=== PATIENT | male | born 1955 | race African-American/Black ===

== ENCOUNTER 2019-05-22 17:15 | Inpatient (IN) | payer BC, OTHER ==
[~2019-05-22] VITALS: Ht 175.3 cm; Wt 82.7 kg
[~2019-05-22 17:15] MED LIST: AMLO10TA8 PO; LOSA1TAB25 PO; METO25TA4 PO; OMEP20TA8 PO; ZOLP5TAB PO
--- NOTE | 2019-05-22 17:55 | PHYS DOC ---
Past Medical History Past Medical History: High Cholesterol, Hypertension Additional Past Medical Histor: acid reflex Past Surgical History: Other Additional Past Surgical Histo: hernia repair, rt arm sx Alcohol Use: Heavy Drug Use: None Adult General Chief Complaint Chief Complaint: DIZZY/LIGHT HEADED HPI HPI 64-year-old male presents to ER via EMS for complaints of dizziness, EtOH, and fall. Patient's reports patient has drank a fifth of vodka today and had episode where he became lightheaded and dizzy causing him to fall backwards striking his head on concrete. She reports he did have positive LOC �2 after the fall. Patient on arrival is A&Ox3 voicing no complaints. Patient is denying any head, neck, or back pain. Patient states he has had no chest pain or shortness of air. Pt is uncertain of his last tetanus. Pt's reports pt drinks daily. Review of Systems Review of Systems ` Constitutional: Denies fever or chills. reports +LOC following fall Eyes: Denies change in visual acuity, redness, or eye pain [] HENT: Denies nasal congestion or sore throat [] Respiratory: Denies cough or shortness of breath [] Cardiovascular: Denies CP GI: Denies abdominal pain, nausea, vomiting, bloody stools or diarrhea [] : Denies urinary sxs Musculoskeletal: Denies back/neck pain or joint pain [] Integument: Denies rash or skin lesions [] Neurologic: Denies focal weakness or sensory changes. Reports felt dizzy and fell backwards- reports posterior head pain Endocrine: Denies polyuria or polydipsia [] Psych: reports pt drinks daily- pt denies any SI All other systems were reviewed and found to be within normal limits, except as documented in this note. Current Medications Current Medications Current Medications Medications (Trade) Dose Ordered Sig/Ashish Start Time Stop Time Status Last Admin Dose Admin Ceftriaxone Sodium (Rocephin) 1 gm 1X ONCE 05/22/19 20:15 05/22/19 20:16 DC 05/22/19 20:15 1 GM Diphtheria/ Tetanus/Acell Pertussis (Boostrix) 0.5 ml ONCE ONCE 05/22/19 20:15 05/22/19 20:16 DC 05/22/19 20:53 0.5 ML Sodium Chloride 1,000 ml @ 1,000 mls/hr 1X ONCE 05/22/19 18:30 05/22/19 19:29 DC 05/22/19 18:45 1,000 MLS/HR Allergies Allergies Allergies Coded Allergies Type Severity Reaction Last Updated Verified No Known Allergies Allergy Unknown 04/03/16 Yes Physical Exam Physical Exam Constitutional: Well developed, well nourished, no acute distress, non-toxic appearance. Clear speech HENT: Normocephalic, swelling rt posterior scalp with small abrasion/sm. amt of bleeding, bilateral ears normal, oropharynx moist, no oral injury, nose normal. [] Eyes: 3mm PERRLA, EOMI, conjunctiva normal, no discharge. [] Neck: Normal range of motion, no tenderness mid line cspine or palp. deformity, supple, no stridor. [] Cardiovascular: Heart rate regular rhythm, no murmur [] Lungs & Thorax: Bilateral breath sounds clear to auscultation- resp. equal/nonlabored. No chest wall tenderness Abdomen: Bowel sounds normal, soft, no tenderness, no masses, no pulsatile masses. [] Skin: Warm, dry, no erythema, no rash. [] Back: No tenderness mid line spine or palp. deformity- no visible injury, no CVA tenderness. [] Extremities: Pelvis stable/nontender. No tenderness, no cyanosis, no clubbing, ROM intact, no edema. [] Neurologic: Alert and oriented X 3, normal motor function, normal sensory function, no focal deficits noted. [] Psychologic: Affect normal, judgement normal, mood normal. [] Current Patient Data Vital Signs Vital Signs Date Time Temp Pulse Resp B/P (MAP) Pulse Ox O2 Delivery O2 Flow Rate FiO2 05/22/19 20:00 92 94 05/22/19 17:15 97.6 18 98/58 (71) Room Air 97.6 Lab Values Laboratory Tests Test 05/22/19 17:23 05/22/19 19:35 White Blood Count 8.3 x10^3/uL (4.0-11.0) Red Blood Count 4.76 x10^6/uL (4.30-5.70) Hemoglobin 12.0 g/dL (13.0-17.5) L Hematocrit 36.6 % (39.0-53.0) L Mean Corpuscular Volume 77 fL (79-100) L Mean Corpuscular Hemoglobin 25 pg (25-35) Mean Corpuscular Hemoglobin Concent 33 g/dL (31-37) Red Cell Distribution Width 21.1 % (11.5-14.5) H Platelet Count 258 x10^3/uL (140-400) Neutrophils (%) (Auto) 58 % (31-73) Lymphocytes (%) (Auto) 28 % (24-48) Monocytes (%) (Auto) 9 % (0-9) Eosinophils (%) (Auto) 4 % (0-3) H Basophils (%) (Auto) 0 % (0-3) Neutrophils # (Auto) 4.8 x10^3/uL (1.8-7.7) Lymphocytes # (Auto) 2.3 x10^3/uL (1.0-4.8) Monocytes # (Auto) 0.8 x10^3/uL (0.0-1.1) Eosinophils # (Auto) 0.4 x10^3/uL (0.0-0.7) Basophils # (Auto) 0.0 x10^3/uL (0.0-0.2) Platelet Estimate Adequate (ADEQUATE) Anisocytosis Mod Sodium Level 139 mmol/L (136-145) Potassium Level 4.0 mmol/L (3.5-5.1) Chloride Level 101 mmol/L (98-107) Carbon Dioxide Level 16 mmol/L (21-32) L Anion Gap 22 (6-14) H Blood Urea Nitrogen 20 mg/dL (8-26) Creatinine 2.5 mg/dL (0.7-1.3) H Estimated GFR (Cockcroft-Gault) 31.8 BUN/Creatinine Ratio 8 (6-20) Glucose Level 104 mg/dL (70-99) H Calcium Level 8.7 mg/dL (8.5-10.1) Magnesium Level 1.9 mg/dL (1.8-2.4) Total Bilirubin 0.3 mg/dL (0.2-1.0) Aspartate Amino Transferase (AST) 15 U/L (15-37) Alanine Aminotransferase (ALT) 24 U/L (16-63) Alkaline Phosphatase 64 U/L (46-116) Troponin I Quantitative < 0.017 ng/mL (0.000-0.055) Total Protein 7.1 g/dL (6.4-8.2) Albumin 3.5 g/dL (3.4-5.0) Albumin/Globulin Ratio 1.0 (1.0-1.7) Ethyl Alcohol Level 238 mg/dL (0-10) H Urine Collection Type Unknown Urine Color Yellow Urine Clarity Clear Urine pH 5.5 Urine Specific [place] 1.010 Urine Protein Negative mg/dL (NEG-TRACE) Urine Glucose (UA) Negative mg/dL (NEG) Urine Ketones (Stick) Negative mg/dL (NEG) Urine Blood Negative (NEG) Urine Nitrite Negative (NEG) Urine Bilirubin Negative (NEG) Urine Urobilinogen Dipstick 1.0 mg/dL (0.2 mg/dL) Urine Leukocyte Esterase Small (NEG) Urine RBC 0 /HPF (0-2) Urine WBC 11-20 /HPF (0-4) Urine Squamous Epithelial Cells Few /LPF Urine Bacteria Few /HPF (0-FEW) Urine Hyaline Casts Many /HPF Urine Mucus Marked /LPF Urine Opiates Screen Neg (NEG) Urine Methadone Screen Neg (NEG) Urine Barbiturates Neg (NEG) Urine Phencyclidine Screen Neg (NEG) Urine Amphetamine/Methamphetamine Neg (NEG) Urine Benzodiazepines Screen Neg (NEG) Urine Cocaine Screen Neg (NEG) Urine Cannabinoids Screen Neg (NEG) Urine Ethyl Alcohol Pos (NEG) Laboratory Tests 05/22/19 17:23 Laboratory Tests 05/22/19 17:23 Microbiology 05/22/19 Urine Culture - Final, Complete 05/22/19 Urine Culture Result 1 (JIMI) - Final, Complete EKG EKG EKG obtained 05/22/19 at [address] Betancourt Sinus tachycardia Rate 110 Ltward axis No STEMI Radiology/Procedures Radiology/Procedures []PROCEDURE: CT HEAD AND CERVICAL SPINE WO Exam performed: CT scan of the head and cervical spine without contrast. Date of Service: January 2019 Comparison: None available Clinical History: Fall, alcohol intoxication, dizziness, loss of consciousness Technique: Helical acquisitions are obtained from the foramen magnum to the vertex without intravenous administration of contrast. In addition helical acquisitions are obtained through the cervical spine. Sagittal and coronal reformatted images are obtained and reviewed. CT scan head findings: The ventricular system is midline without evidence of dilatation. Normal razo-white differentiation is maintained. There is no extra axial fluid collection, intraparenchymal hemorrhage or mass lesion. The visualized orbits, paranasal sinuses and the mastoid air cells are clear. The calvarium is intact. Impression: 1. Normal non-contrast CT of the brain. End Impression. CT cervical spine findings: Straightening of the cervical curvature is noted. The vertebral body heights are maintained. There is narrowing of C3/4, C4/5 and C5/6 disc spaces, the remainder intravertebral disc spaces are maintained. Mild anterior osteophytes are seen centered mainly around C3-C6. There is no amara or retrolisthesis. No prevertebral soft tissue swelling is identified. There are no fractures. No definite lymphadenopathy or masses are seen within the neck. The visualized thyroid and salivary glands appears preserved. Impression: 1. No acute abnormality seen in the CT scan cervical spine. 2. Spondylotic changes and multilevel disc degenerative changes are noted. RS Compliance Statement: One or more of the following individualized dose reduction techniques were utilized for this examination: 1. Automated exposure control 2. Adjustment of the mA and/or kV according to patient size 3. Use of iterative reconstruction technique Electronically signed by: Augusta Samson MD (05/22/2019 6:48 PM) [facility] DICTATED and SIGNED BY: AUGUSTA SAMSON MD DATE: 05/22/19 1848 Course & Med Decision Making Course & Med Decision Making Pertinent Labs and Imaging studies reviewed. (See chart for details) Pt was evaluated in the ER following a fall. Patient had dizziness and fell backwards striking the back of his head. Patient reports he had drank a fifth of vodka today. Patient's reported loss of consciousness. Patient has had no change in neuro status while in the ER remains alert and oriented. Patient had h ead and C-spine CT with no acute findings. Patient's UA showing UTIs patient is being provided with IV Rocephin. Pt's Cr elevated on labs at 2.5. EKG with no acute elevation/STEMI and troponin was neg. Pt refused his chest xray. Patient's states patient does drink daily. Patient's alcohol was 277. Patient has complaints of headache and blood pressure has remained on the lower side as he was reported to be hypotensive by EMS. 115 systolic currently with heart rate 93. Pt received 1 L normal saline while in the ER. Discussion had with patient and his regarding head injury/etoh. Admission was discussed as well as home discharge and following discussion with patient having syncope episode and head injury patient will be admitted to hospitalist for further monitoring and care. Patient was updated on his tetanus while in the ER. Patient was found to have small abrasion to posterior scalp which required no wound repair. 2034: Spoke with Dr. Huertas, hospitalist and discussed pt's case and admit plan. Dragon Disclaimer Dragon Disclaimer This electronic medical record was generated, in whole or in part, using a voice recognition dictation system. Departure Departure Impression: Primary Impression: Dizziness Additional Impressions: ETOH abuse Head injury UTI (urinary tract infection) Acute renal injury Disposition: ADMITTED INPATIENT Admitting Physician: BRIAN Condition: STABLE Referrals: MUNDO LAMBERT MD (PCP) Scripts Meclizine Hcl (MECLIZINE HCL) 12.5 Mg Tablet 12.5 MG PO PRN Q6HRS PRN for DIZZINESS for 10 Days, #30 TAB Prov: SUMMER LARA MD 05/26/19 Iron Polysaccharides Complex (POLY-IRON) 150 Mg Capsule 150 MG PO DAILY for ANEMIA for 30 Days, #30 CAP Prov: SUMMER LARA MD 05/26/19 Problem Qualifiers MAXIME CARLIN APRN May 22, 2019 17:55
[2019-05-22 18:06] LABS: BASO % 0 % (0-3); EOS # 0.4 x10^3/uL (0.0-0.7); EOS % 4 % (0-3); HEMATOCRIT 36.6 % (39.0-53.0); LYMPH # 2.3 x10^3/uL (1.0-4.8); LYMPH % 28 % (24-48); MEAN CORPUSCULAR HEMOGLOBIN 25 pg (25-35); MEAN CORPUSCULAR HGB CONC 33 g/dL (31-37); MEAN CORPUSCULAR VOLUME 77 fL (79-100); MONO # 0.8 x10^3/uL (0.0-1.1); MONO % 9 % (0-9); NEUT # 4.8 x10^3/uL (1.8-7.7); NEUT % 58 % (31-73); PLATELET COUNT 258 x10^3/uL (140-400); RED BLOOD COUNT 4.76 x10^6/uL (4.30-5.70); RED CELL DISTRIBUTION WIDTH 21.1 % (11.5-14.5); WHITE BLOOD COUNT 8.3 x10^3/uL (4.0-11.0)
[2019-05-22 18:18] LABS: CALCIUM 8.7 mg/dL (8.5-10.1); CREATININE 2.5 mg/dL (0.7-1.3); GFR 31.8
[2019-05-22 18:24] LABS: ALBUMIN 3.5 g/dL (3.4-5.0); MAGNESIUM 1.9 mg/dL (1.8-2.4); TOTAL BILIRUBIN 0.3 mg/dL (0.2-1.0); TOTAL PROTEIN 7.1 g/dL (6.4-8.2)
[2019-05-22] MEDS ORDERED: IV NORMAL SALINE 1000ML BAG 1,000 ML IV ONE (18:30)
[2019-05-22 18:31] LABS: ANISOCYTOSIS MOD; PLT ESTIMATE ADEQUATE (ADEQUATE)
--- NOTE | 2019-05-22 18:52 | RAD ---
Exam performed: CT scan of the head and cervical spine without contrast. Date of Service: January 2019 Comparison: None available Clinical History: Fall, alcohol intoxication, dizziness, loss of consciousness Technique: Helical acquisitions are obtained from the foramen magnum to the vertex without intravenous administration of contrast. In addition helical acquisitions are obtained through the cervical spine. Sagittal and coronal reformatted images are obtained and reviewed. CT scan head findings: The ventricular system is midline without evidence of dilatation. Normal razo-white differentiation is maintained. There is no extra axial fluid collection, intraparenchymal hemorrhage or mass lesion. The visualized orbits, paranasal sinuses and the mastoid air cells are clear. The calvarium is intact. Impression: 1. Normal non-contrast CT of the brain. End Impression. CT cervical spine findings: Straightening of the cervical curvature is noted. The vertebral body heights are maintained. There is narrowing of C3/4, C4/5 and C5/6 disc spaces, the remainder intravertebral disc spaces are maintained. Mild anterior osteophytes are seen centered mainly around C3-C6. There is no amara or retrolisthesis. No prevertebral soft tissue swelling is identified. There are no fractures. No definite lymphadenopathy or masses are seen within the neck. The visualized thyroid and salivary glands appears preserved. Impression: 1. No acute abnormality seen in the CT scan cervical spine. 2. Spondylotic changes and multilevel disc degenerative changes are noted. PQRS Compliance Statement: One or more of the following individualized dose reduction techniques were utilized for this examination: 1. Automated exposure control 2. Adjustment of the mA and/or kV according to patient size 3. Use of iterative reconstruction technique Electronically signed by: Augusta Samson MD (05/22/2019 6:48 PM) [facility]
[2019-05-22 19:49] LABS: BILIRUBIN,URINE NEGATIVE (NEG); CLARITY,URINE CLEAR; COLOR,URINE YELLOW; NITRITE,URINE NEGATIVE (NEG); PH,URINE 5.5; PROTEIN,URINE NEGATIVE (NEG-TRACE)
[2019-05-22 19:55] LABS: BARBITURATES NEG (NEG); BENZODIAZEPINES NEG (NEG); CANNABINOIDS NEG (NEG); COCAINE NEG (NEG); METHADONE NEG (NEG); OPIATES NEG (NEG); PHENCYCLIDINE NEG (NEG)
[2019-05-22 19:58] LABS: AMPHETAMINE/METHAMPHETAMINE NEG (NEG)
[2019-05-22 20:03] LABS: HYALINE CASTS, URINE MANY /HPF; SQUAMOUS EPITHELIAL CELL,UR FEW /LPF
[2019-05-22 20:04] LABS: BACTERIA,URINE FEW /HPF (0-FEW); RBC,URINE 0 /HPF (0-2)
[2019-05-22] MEDS ORDERED: cefTRIAXone IV Push 1 GM VIAL. IVP ONE (20:15)
[2019-05-22] MEDS ORDERED: DIPHTH,PERTUSS(ACELL),TET TOX 0.5 ML DISP.SYRIN. VAX IM ONE (20:15)
[2019-05-22] MEDS ORDERED: ACETAMINOPHEN 325 MG TABLET. PO ONE (20:30)
[2019-05-22 21:15] VITALS: BP 136/80
[2019-05-22] MEDS ORDERED: ONDANSETRON PF 4 MG/2 ML VIAL. IV PRN (21:15)
[2019-05-22] MEDS ORDERED: LOVA20TA2 PO (22:25)
[2019-05-22] MEDS ORDERED: LOSA1TAB19 PO (22:25)
[2019-05-22] MEDS ORDERED: HYDR12.58 PO (23:41)
[2019-05-22] MEDS ORDERED: TAMS0.4C97 PO (23:41)
[2019-05-22] MEDS ORDERED: METF500T16 PO (23:41)
[2019-05-22] MEDS ORDERED: LOSA100T14 PO (23:41)
[2019-05-22 23:49] VITALS: BP 124/80
[2019-05-23 03:08] LABS: BASO % 0 % (0-3); EOS # 0.4 x10^3/uL (0.0-0.7); EOS % 7 % (0-3); HEMATOCRIT 36.4 % (39.0-53.0); HEMOGLOBIN 11.6 g/dL (13.0-17.5); LYMPH # 1.4 x10^3/uL (1.0-4.8); LYMPH % 22 % (24-48); MEAN CORPUSCULAR HEMOGLOBIN 25 pg (25-35); MEAN CORPUSCULAR HGB CONC 32 g/dL (31-37); MEAN CORPUSCULAR VOLUME 77 fL (79-100); MONO # 0.5 x10^3/uL (0.0-1.1); MONO % 9 % (0-9); NEUT # 3.8 x10^3/uL (1.8-7.7); NEUT % 62 % (31-73); PLATELET COUNT 250 x10^3/uL (140-400); RED BLOOD COUNT 4.72 x10^6/uL (4.30-5.70); RED CELL DISTRIBUTION WIDTH 20.8 % (11.5-14.5); WHITE BLOOD COUNT 6.2 x10^3/uL (4.0-11.0)
[2019-05-23 03:30] LABS: ALBUMIN 3.2 g/dL (3.4-5.0); ALBUMIN/GLOBULIN RATIO 0.8 (1.0-1.7); CALCIUM 8.7 mg/dL (8.5-10.1); CREATININE 1.8 mg/dL (0.7-1.3); GFR 46.5; POTASSIUM 3.6 mmol/L (3.5-5.1); TOTAL BILIRUBIN 0.2 mg/dL (0.2-1.0); TOTAL PROTEIN 7.2 g/dL (6.4-8.2)
[2019-05-23 03:54] VITALS: BP 134/78
--- NOTE | 2019-05-23 07:09 | EKG ---
[facility] [address] [place] [address] Test Date: 2019-05-22 Test Time: 17:31:24 Pat Name: JORGE LUIS TERAN Department: Room: Gender: M [employer] Work[employer]: : [id number] Requested By: MAXIME CARLIN Order Number: [id number] Reading MD: Measurements Intervals [place] Rate: 110 P: 19 IN: 174 QRS: -16 QRSD: 72 T: 35 QT: 338 QTc: 463 Interpretive Statements SINUS TACHYCARDIA LEFTWARD AXIS QRS(T) CONTOUR ABNORMALITY CONSISTENT WITH INFERIOR INFARCT PROBABLY OLD ABNORMAL ECG No previous ECG available for comparison
[2019-05-23 07:30] VITALS: BP 130/86
--- NOTE | 2019-05-23 10:13 | PDOC1 ---
History and Physical Date of Admission Date of Admission DATE: 05/23/19 TIME: 10:12 Identification/Chief Complaint Chief Complaint presented to ER via EMS for complaints of dizziness, EtOH, and fall. patient has drank a fifth of vodka 05/22 and had episode where he became lightheaded and dizzy. fell backwards striking his head on concrete. She reports he did have positive LOC �2 after the fall. Patient er arrival is A&Ox3 voicing no complaints. hit occiput some swelling noted, did not bite tongue or lose bladder or bowel control. Patient states he has had no chest pain or shortness of air. STATES HE IS A HEAVY DRINKER, drinks at night after work Past Medical History Past Medical History Past Medical History Past Medical History: High Cholesterol, Hypertension Additional Past Medical Histor: acid reflex Past Surgical History: Other Additional Past Surgical Histo: hernia repair, rt arm sx Alcohol Use: Heavy Drug Use: None family hx alcohol abuse, htn Cardiovascular: HTN, Hyperlipidemia Pulmonary: No pertinent hx CENTRAL NERVOUS SYSTEM: Other GI: GERD Heme/Onc: No pertinent hx Hepatobiliary: No pertinent hx Psych: No pertinent hx Musculoskeletal: Osteoarthritis Infectious disease: No pertinent hx Renal/: No pertinent hx Endocrine: No pertinent hx Past Surgical History Past Surgical History: Hernia Repair, Other Family History Family History: Alcohol Abuse, Coronary Artery Disease, Diabetes Social History Smoke: <1 pack per day ALCOHOL: heavy Drugs: None Current Problem List Problem List Problems Medical Problems: (1) Acute renal injury Status: Acute (2) Dizziness Status: Acute (3) ETOH abuse Status: Acute (4) Head injury Status: Acute (5) UTI (urinary tract infection) Status: Acute Current Medications Current Medications Current Medications Sodium Chloride 1,000 ml @ 1,000 mls/hr 1X ONCE IV Last administered on 05/22/19at 18:45; Start 05/22/19 at 18:30; Stop 05/22/19 at 19:29; Status DC Diphtheria/ Tetanus/Acell Pertussis (Boostrix) 0.5 ml ONCE ONCE VAX IM Last administered on 05/22/19at 20:53; Start 05/22/19 at 20:15; Stop 05/22/19 at 20:16; Status DC Ceftriaxone Sodium (Rocephin) 1 gm 1X ONCE IVP Last administered on 05/22/19at 20:15; Start 05/22/19 at 20:15; Stop 05/22/19 at 20:16; Status DC Acetaminophen (Tylenol) 650 mg 1X ONCE PO Last administered on 05/22/19at 20:48; Start 05/22/19 at 20:30; Stop 05/22/19 at 20:31; Status DC Ondansetron HCl (Zofran) 4 mg PRN Q8HRS PRN IV NAUSEA/VOMITING 1ST CHOICE; Start 05/22/19 at 21:15; Stop 05/23/19 at 21:14 Active Scripts Active Reported Losartan Potassium 100 Mg Tablet 100 Mg PO DAILY Flomax (Tamsulosin Hcl) 0.4 Mg Cap.er.24h 0.4 Mg PO DAILY Hydrochlorothiazide Tablet (Hydrochlorothiazide) 12.5 Mg Tablet 12.5 Mg PO DAILY Metformin Hcl 500 Mg Tablet 500 Mg PO DAILY Lovastatin 20 Mg Tablet 1 Tab PO DAILY Amlodipine Besylate 10 Mg Tablet 10 Mg PO DAILY Omeprazole 20 Mg Tablet.dr 20 Mg PO DAILY Ambien (Zolpidem Tartrate) 5 Mg Tablet 1 Tab PO QHS Allergies Allergies: Coded Allergies: No Known Allergies (Verified Allergy, Unknown, 04/03/16) ROS Review of System Review of Systems Review of Systems Constitutional: Denies fever or chills. reports +LOC following fall Eyes: Denies change in visual acuity, redness, or eye pain [] HENT: Denies nasal congestion or sore throat [] Respiratory: Denies cough or shortness of breath [] Cardiovascular: Denies CP GI: Denies abdominal pain, nausea, vomiting, bloody stools or diarrhea [] : Denies urinary sxs Musculoskeletal: Denies back/neck pain or joint pain [] Integument: Denies rash or skin lesions [] Neurologic: Denies focal weakness or sensory changes. Reports felt dizzy and fell backwards- reports posterior head pain, swelling occiput Endocrine: Denies polyuria or polydipsia [] 14 pt systems were reviewed and found to be within normal limits, except as documented ALLERGY AND IMMUNOLOGY: No: Hives, Insect Bite Sensitivity, Itchy/Watery Eyes, Nasal Congestion, Post Nasal Drip, Seasonal Allergies, Other Respiratory: No: Cough, Hemoptysis, Orthopnea, Pleuritic Pain, Shortness of breath, SOB with excertion, Sputum Changes, Stridor, Tachypnea, Wheezing, Other Neurological: Yes Gait Disturbance Physical Exam Physical Exam Physical Exam Physical Exam Constitutional: Well developed, well nourished, no acute distress, non-toxic appearance. [] HENT: Normocephalic, atraumatic, bilateral ears normal, oropharynx moist, no oral injury, nose normal. [] Eyes: 3mm PERRLA, EOMI, conjunctiva normal, no discharge. [] Neck: Normal range of motion, no tenderness, supple, no stridor. [] Cardiovascular: Heart rate regular rhythm, no murmur [] Lungs & Thorax: Bilateral breath sounds clear to auscultation [] Abdomen: Bowel sounds normal, soft, no tenderness, no masses, no pulsatile masses. [] Skin: Warm, dry, no erythema, no rash. [] Back: No tenderness, no CVA tenderness. [] Extremities: No tenderness, no cyanosis, no clubbing, ROM intact, no edema. [] Neurologic: Alert and oriented X 3, normal motor function, normal sensory function, no focal deficits noted. [] Psychologic: Affect normal, judgement normal, mood normal. [] General: No acute distress HEENT: PERRLA, EOMI Lungs: Clear to auscultation, Normal air movement Heart: S1S2, RRR, no thrills, no gallops, no murmurs Abdomen: Normal bowel sounds, Soft Rectal Exam: not examined PELVIC: Examination not indicated Extremities: No cyanosis Neuro: Normal speech, Strength at 5/5 X4 ext, Cranial nerves 3-12 NL Psych/Mental Status: Mental status NL, Mood NL Vitals Vitals Vital Signs Date Time Temp Pulse Resp B/P (MAP) Pulse Ox O2 Delivery O2 Flow Rate FiO2 05/23/19 07:30 98.1 95 15 130/86 (101) 95 Room Air 98.1 Labs Labs Laboratory Tests Test 05/22/19 17:23 05/22/19 19:35 05/23/19 00:50 05/23/19 02:55 White Blood Count 8.3 x10^3/uL (4.0-11.0) 6.2 x10^3/uL (4.0-11.0) Red Blood Count 4.76 x10^6/uL (4.30-5.70) 4.72 x10^6/uL (4.30-5.70) Hemoglobin 12.0 g/dL (13.0-17.5) 11.6 g/dL (13.0-17.5) Hematocrit 36.6 % (39.0-53.0) 36.4 % (39.0-53.0) Mean Corpuscular Volume 77 fL (79-100) 77 fL (79-100) Mean Corpuscular Hemoglobin 25 pg (25-35) 25 pg (25-35) Mean Corpuscular Hemoglobin Concent 33 g/dL (31-37) 32 g/dL (31-37) Red Cell Distribution Width 21.1 % (11.5-14.5) 20.8 % (11.5-14.5) Platelet Count 258 x10^3/uL (140-400) 250 x10^3/uL (140-400) Neutrophils (%) (Auto) 58 % (31-73) 62 % (31-73) Lymphocytes (%) (Auto) 28 % (24-48) 22 % (24-48) Monocytes (%) (Auto) 9 % (0-9) 9 % (0-9) Eosinophils (%) (Auto) 4 % (0-3) 7 % (0-3) Basophils (%) (Auto) 0 % (0-3) 0 % (0-3) Neutrophils # (Auto) 4.8 x10^3/uL (1.8-7.7) 3.8 x10^3/uL (1.8-7.7) Lymphocytes # (Auto) 2.3 x10^3/uL (1.0-4.8) 1.4 x10^3/uL (1.0-4.8) Monocytes # (Auto) 0.8 x10^3/uL (0.0-1.1) 0.5 x10^3/uL (0.0-1.1) Eosinophils # (Auto) 0.4 x10^3/uL (0.0-0.7) 0.4 x10^3/uL (0.0-0.7) Basophils # (Auto) 0.0 x10^3/uL (0.0-0.2) 0.0 x10^3/uL (0.0-0.2) Platelet Estimate Adequate (ADEQUATE) Anisocytosis Mod Sodium Level 139 mmol/L (136-145) 141 mmol/L (136-145) Potassium Level 4.0 mmol/L (3.5-5.1) 3.6 mmol/L (3.5-5.1) Chloride Level 101 mmol/L (98-107) 105 mmol/L (98-107) Carbon Dioxide Level 16 mmol/L (21-32) 19 mmol/L (21-32) Anion Gap 22 (6-14) 17 (6-14) Blood Urea Nitrogen 20 mg/dL (8-26) 20 mg/dL (8-26) Creatinine 2.5 mg/dL (0.7-1.3) 1.8 mg/dL (0.7-1.3) Estimated GFR (Cockcroft-Gault) 31.8 46.5 BUN/Creatinine Ratio 8 (6-20) 11 (6-20) Glucose Level 104 mg/dL (70-99) 118 mg/dL (70-99) Calcium Level 8.7 mg/dL (8.5-10.1) 8.7 mg/dL (8.5-10.1) Magnesium Level 1.9 mg/dL (1.8-2.4) Total Bilirubin 0.3 mg/dL (0.2-1.0) 0.2 mg/dL (0.2-1.0) Aspartate Amino Transf (AST/SGOT) 15 U/L (15-37) 13 U/L (15-37) Alanine Aminotransferase (ALT/SGPT) 24 U/L (16-63) 20 U/L (16-63) Alkaline Phosphatase 64 U/L (46-116) 60 U/L (46-116) Troponin I Quantitative < 0.017 ng/mL (0.000-0.055) < 0.017 ng/mL (0.000-0.055) < 0.017 ng/mL (0.000-0.055) Total Protein 7.1 g/dL (6.4-8.2) 7.2 g/dL (6.4-8.2) Albumin 3.5 g/dL (3.4-5.0) 3.2 g/dL (3.4-5.0) Albumin/Globulin Ratio 1.0 (1.0-1.7) 0.8 (1.0-1.7) Ethyl Alcohol Level 238 mg/dL (0-10) Urine Collection Type Unknown Urine Color Yellow Urine Clarity Clear Urine pH 5.5 Urine Specific [place] 1.010 Urine Protein Negative mg/dL (NEG-TRACE) Urine Glucose (UA) Negative mg/dL (NEG) Urine Ketones (Stick) Negative mg/dL (NEG) Urine Blood Negative (NEG) Urine Nitrite Negative (NEG) Urine Bilirubin Negative (NEG) Urine Urobilinogen Dipstick 1.0 mg/dL (0.2 mg/dL) Urine Leukocyte Esterase Small (NEG) Urine RBC 0 /HPF (0-2) Urine WBC 11-20 /HPF (0-4) Urine Squamous Epithelial Cells Few /LPF Urine Bacteria Few /HPF (0-FEW) Urine Hyaline Casts Many /HPF Urine Mucus Marked /LPF Urine Opiates Screen Neg (NEG) Urine Methadone Screen Neg (NEG) Urine Barbiturates Neg (NEG) Urine Phencyclidine Screen Neg (NEG) Urine Amphetamine/Methamphetamine Neg (NEG) Urine Benzodiazepines Screen Neg (NEG) Urine Cocaine Screen Neg (NEG) Urine Cannabinoids Screen Neg (NEG) Urine Ethyl Alcohol Pos (NEG) Laboratory Tests Test 05/22/19 17:23 05/22/19 19:35 05/23/19 00:50 05/23/19 02:55 White Blood Count 8.3 x10^3/uL (4.0-11.0) 6.2 x10^3/uL (4.0-11.0) Red Blood Count 4.76 x10^6/uL (4.30-5.70) 4.72 x10^6/uL (4.30-5.70) Hemoglobin 12.0 g/dL (13.0-17.5) 11.6 g/dL (13.0-17.5) Hematocrit 36.6 % (39.0-53.0) 36.4 % (39.0-53.0) Mean Corpuscular Volume 77 fL (79-100) 77 fL (79-100) Mean Corpuscular Hemoglobin 25 pg (25-35) 25 pg (25-35) Mean Corpuscular Hemoglobin Concent 33 g/dL (31-37) 32 g/dL (31-37) Red Cell Distribution Width 21.1 % (11.5-14.5) 20.8 % (11.5-14.5) Platelet Count 258 x10^3/uL (140-400) 250 x10^3/uL (140-400) Neutrophils (%) (Auto) 58 % (31-73) 62 % (31-73) Lymphocytes (%) (Auto) 28 % (24-48) 22 % (24-48) Monocytes (%) (Auto) 9 % (0-9) 9 % (0-9) Eosinophils (%) (Auto) 4 % (0-3) 7 % (0-3) Basophils (%) (Auto) 0 % (0-3) 0 % (0-3) Neutrophils # (Auto) 4.8 x10^3/uL (1.8-7.7) 3.8 x10^3/uL (1.8-7.7) Lymphocytes # (Auto) 2.3 x10^3/uL (1.0-4.8) 1.4 x10^3/uL (1.0-4.8) Monocytes # (Auto) 0.8 x10^3/uL (0.0-1.1) 0.5 x10^3/uL (0.0-1.1) Eosinophils # (Auto) 0.4 x10^3/uL (0.0-0.7) 0.4 x10^3/uL (0.0-0.7) Basophils # (Auto) 0.0 x10^3/uL (0.0-0.2) 0.0 x10^3/uL (0.0-0.2) Platelet Estimate Adequate (ADEQUATE) Anisocytosis Mod Sodium Level 139 mmol/L (136-145) 141 mmol/L (136-145) Potassium Level 4.0 mmol/L (3.5-5.1) 3.6 mmol/L (3.5-5.1) Chloride Level 101 mmol/L (98-107) 105 mmol/L (98-107) Carbon Dioxide Level 16 mmol/L (21-32) 19 mmol/L (21-32) Anion Gap 22 (6-14) 17 (6-14) Blood Urea Nitrogen 20 mg/dL (8-26) 20 mg/dL (8-26) Creatinine 2.5 mg/dL (0.7-1.3) 1.8 mg/dL (0.7-1.3) Estimated GFR (Cockcroft-Gault) 31.8 46.5 BUN/Creatinine Ratio 8 (6-20) 11 (6-20) Glucose Level 104 mg/dL (70-99) 118 mg/dL (70-99) Calcium Level 8.7 mg/dL (8.5-10.1) 8.7 mg/dL (8.5-10.1) Magnesium Level 1.9 mg/dL (1.8-2.4) Total Bilirubin 0.3 mg/dL (0.2-1.0) 0.2 mg/dL (0.2-1.0) Aspartate Amino Transf (AST/SGOT) 15 U/L (15-37) 13 U/L (15-37) Alanine Aminotransferase (ALT/SGPT) 24 U/L (16-63) 20 U/L (16-63) Alkaline Phosphatase 64 U/L (46-116) 60 U/L (46-116) Troponin I Quantitative < 0.017 ng/mL (0.000-0.055) < 0.017 ng/mL (0.000-0.055) < 0.017 ng/mL (0.000-0.055) Total Protein 7.1 g/dL (6.4-8.2) 7.2 g/dL (6.4-8.2) Albumin 3.5 g/dL (3.4-5.0) 3.2 g/dL (3.4-5.0) Albumin/Globulin Ratio 1.0 (1.0-1.7) 0.8 (1.0-1.7) Ethyl Alcohol Level 238 mg/dL (0-10) Urine Collection Type Unknown Urine Color Yellow Urine Clarity Clear Urine pH 5.5 Urine Specific [place] 1.010 Urine Protein Negative mg/dL (NEG-TRACE) Urine Glucose (UA) Negative mg/dL (NEG) Urine Ketones (Stick) Negative mg/dL (NEG) Urine Blood Negative (NEG) Urine Nitrite Negative (NEG) Urine Bilirubin Negative (NEG) Urine Urobilinogen Dipstick 1.0 mg/dL (0.2 mg/dL) Urine Leukocyte Esterase Small (NEG) Urine RBC 0 /HPF (0-2) Urine WBC 11-20 /HPF (0-4) Urine Squamous Epithelial Cells Few /LPF Urine Bacteria Few /HPF (0-FEW) Urine Hyaline Casts Many /HPF Urine Mucus Marked /LPF Urine Opiates Screen Neg (NEG) Urine Methadone Screen Neg (NEG) Urine Barbiturates Neg (NEG) Urine Phencyclidine Screen Neg (NEG) Urine Amphetamine/Methamphetamine Neg (NEG) Urine Benzodiazepines Screen Neg (NEG) Urine Cocaine Screen Neg (NEG) Urine Cannabinoids Screen Neg (NEG) Urine Ethyl Alcohol Pos (NEG) Images Images STATUS: REG ER ORD. PHYSICIAN: MAXIME CARLIN APRN REASON: fall- etoh/LOC/dizziness PROCEDURE: CT HEAD AND CERVICAL SPINE WO Exam performed: CT scan of the head and cervical spine without contrast. Date of Service: January 2019 Comparison: None available Clinical History: Fall, alcohol intoxication, dizziness, loss of consciousness Technique: Helical acquisitions are obtained from the foramen magnum to the vertex without intravenous administration of contrast. In addition helical acquisitions are obtained through the cervical spine. Sagittal and coronal reformatted images are obtained and reviewed. CT scan head findings: The ventricular system is midline without evidence of dilatation. Normal razo-white differentiation is maintained. There is no extra axial fluid collection, intraparenchymal hemorrhage or mass lesion. The visualized orbits, paranasal sinuses and the mastoid air cells are clear. The calvarium is intact. Impression: 1. Normal non-contrast CT of the brain. End Impression. CT cervical spine findings: Straightening of the cervical curvature is noted. The vertebral body heights are maintained. There is narrowing of C3/4, C4/5 and C5/6 disc spaces, the remainder intravertebral disc spaces are maintained. Mild anterior osteophytes are seen centered mainly around C3-C6. There is no amara or retrolisthesis. No prevertebral soft tissue swelling is identified. There are no fractures. No definite lymphadenopathy or masses are seen within the neck. The visualized thyroid and salivary glands appears preserved. Impression: 1. No acute abnormality seen in the CT scan cervical spine. 2. Spondylotic changes and multilevel disc degenerative changes are noted. PQRS Compliance Statement: One or more of the following individualized dose reduction techniques were utilized for this examination: 1. Automated exposure control 2. Adjustment of the mA and/or kV according to patient size 3. Use of iterative reconstruction technique Electronically signed by: Augusta Samson MD (05/22/2019 6:48 PM) [facility] VTE Prophylaxis Ordered VTE Prophylaxis Devices: Yes VTE Pharmacological Prophylaxi: Yes Assessment/Plan Assessment/Plan Impression: 1. alcohol abuse 2. No acute abnormality seen in the CT scan cervical spine. 3. Spondylotic changes and multilevel disc degenerative changes are noted. 4. fall with LOC 5. Head injury 6. acute renal failure, vasomotor nephropathy/ CKD ///BY CHART REVIEW 7. tobacco abuse 8. microcytic anemia plan admit fall precautions alcohol withdrawal precautions banana bag, iv fluid support TELE Neurochecks q 4 hrs neurology consult scd's, dvt prophylaxis po pepsid gi prophylaxis frequent labs nephrology consult fe panel 74 MIN PT EXAM, CHART REVIEW, > 50% OF TIME SPENT WITH EXAM, CHART REVIEW, PT CARE COORDINATION SUMMER LARA MD May 23, 2019 10:12
[2019-05-23 11:43] VITALS: BP 137/85
[2019-05-23 15:18] VITALS: BP 122/82
[2019-05-23] MEDS ORDERED: HALOPERIDOL LACTATE 5 MG/ML VIAL. IVP PRN (16:15)
[2019-05-23] MEDS ORDERED: LORazepam 1 MG TABLET PO PRN ×2 (16:15)
[2019-05-23] MEDS ORDERED: diphenhydrAMINE 50 MG/ML VIAL IVP PRN (16:15)
[2019-05-23] MEDS ORDERED: cloNIDine HCL 0.1 MG TABLET PO PRN (16:15)
[2019-05-23] MEDS: MULTIVIT INFUSN,ADULT 4,VIT K 10 ML, THIAMINE INJ 100 MG, FOLIC ACID INJ 1 MG in IV NOR... IV SCH (17:36)
[2019-05-23] MEDS: LOSARTAN POTASSIUM 50 MG TABLET. PO SCH (17:37)
[2019-05-23] MEDS: TAMSULOSIN 0.4 MG CAP.ER.24H. PO SCH (17:37)
[2019-05-23] MEDS: PANTOPRAZOLE 40 MG TABLET.DR. PO SCH (17:37)
[2019-05-23] MEDS: hydroCHLOROthiazide 12.5 MG CAPSULE PO SCH (17:37)
[2019-05-23] MEDS: metFORMIN 500 MG TABLET PO SCH (17:37)
[2019-05-23] MEDS: amLODIPine BESYLATE 10 MG TABLET PO SCH (17:37)
[2019-05-23 19:35] VITALS: BP 137/79
[2019-05-23] MEDS: FAMOTIDINE 20 MG TABLET. PO SCH (21:38)
[2019-05-23] MEDS: ATORVASTATIN CALCIUM 10 MG TABLET. PO SCH (21:38)
[2019-05-23] MEDS: ZOLPIDEM 5 MG TABLET. PO SCH (21:38)
[2019-05-23 23:35] VITALS: BP 122/83
[2019-05-24 03:40] VITALS: BP 134/83
[2019-05-24 04:35] LABS: BASO % 0 % (0-3); EOS # 0.5 x10^3/uL (0.0-0.7); EOS % 7 % (0-3); HEMATOCRIT 39.4 % (39.0-53.0); HEMOGLOBIN 12.6 g/dL (13.0-17.5); LYMPH # 2.5 x10^3/uL (1.0-4.8); LYMPH % 35 % (24-48); MEAN CORPUSCULAR HEMOGLOBIN 25 pg (25-35); MEAN CORPUSCULAR HGB CONC 32 g/dL (31-37); MEAN CORPUSCULAR VOLUME 77 fL (79-100); MONO # 0.7 x10^3/uL (0.0-1.1); MONO % 10 % (0-9); NEUT # 3.4 x10^3/uL (1.8-7.7); NEUT % 47 % (31-73); PLATELET COUNT 274 x10^3/uL (140-400); RED BLOOD COUNT 5.12 x10^6/uL (4.30-5.70); RED CELL DISTRIBUTION WIDTH 20.9 % (11.5-14.5); WHITE BLOOD COUNT 7.2 x10^3/uL (4.0-11.0)
[2019-05-24 07:30] VITALS: BP 128/89
[2019-05-24 07:52] LABS: ALBUMIN 3.5 g/dL (3.4-5.0); ALBUMIN/GLOBULIN RATIO 0.8 (1.0-1.7); CALCIUM 9.4 mg/dL (8.5-10.1); CREATININE 1.3 mg/dL (0.7-1.3); GFR 67.7; POTASSIUM 4.1 mmol/L (3.5-5.1); TOTAL BILIRUBIN 0.5 mg/dL (0.2-1.0); TOTAL PROTEIN 7.8 g/dL (6.4-8.2)
[2019-05-24] MEDS ORDERED: MECLIZINE HCL 12.5 MG TABLET. PO ONE (08:45)
--- NOTE | 2019-05-24 09:53 | PDOC ---
PROGRESS NOTES History of Present Illness History of Present Illness VTE Prophylaxis Ordered VTE Prophylaxis Devices: Yes VTE Pharmacological Prophylaxi: Yes Assessment/Plan Assessment/Plan Impression: 1. alcohol abuse 2. No acute abnormality seen in the CT scan cervical spine. 3. Spondylotic changes and multilevel disc degenerative changes are noted. 4. fall with LOC 5. Head injury ////WITH POST CONCUSSION SYNDROME 6. acute renal failure, vasomotor nephropathy/ CKD ///BY CHART REVIEW 7. tobacco abuse 8. microcytic anemia plan admit fall precautions alcohol withdrawal precautions banana bag, iv fluid support TELE Neurochecks q 4 hrs neurology consult scd's, dvt prophylaxis po pepsid gi prophylaxis frequent labs nephrology consult fe panel NEEDS ETOH REHAB D/W 28 MIN PT EXAM, CHART REVIEW, > 50% OF TIME SPENT WITH EXAM, CHART REVIEW, PT CARE COORDINATION Vitals Vitals Vital Signs Date Time Temp Pulse Resp B/P (MAP) Pulse Ox O2 Delivery O2 Flow Rate FiO2 05/24/19 07:30 97.8 91 18 128/89 (102) 98 Room Air 97.8 Physical Exam General: Alert, Oriented X3, Cooperative, No acute distress Heart: Regular rate Lungs: Clear Abdomen: Normal bowel sounds, Soft Extremities: No cyanosis Skin: No significant lesion Labs LABS Laboratory Tests Test 05/24/19 03:55 White Blood Count 7.2 x10^3/uL (4.0-11.0) Red Blood Count 5.12 x10^6/uL (4.30-5.70) Hemoglobin 12.6 g/dL (13.0-17.5) Hematocrit 39.4 % (39.0-53.0) Mean Corpuscular Volume 77 fL (79-100) Mean Corpuscular Hemoglobin 25 pg (25-35) Mean Corpuscular Hemoglobin Concent 32 g/dL (31-37) Red Cell Distribution Width 20.9 % (11.5-14.5) Platelet Count 274 x10^3/uL (140-400) Neutrophils (%) (Auto) 47 % (31-73) Lymphocytes (%) (Auto) 35 % (24-48) Monocytes (%) (Auto) 10 % (0-9) Eosinophils (%) (Auto) 7 % (0-3) Basophils (%) (Auto) 0 % (0-3) Neutrophils # (Auto) 3.4 x10^3/uL (1.8-7.7) Lymphocytes # (Auto) 2.5 x10^3/uL (1.0-4.8) Monocytes # (Auto) 0.7 x10^3/uL (0.0-1.1) Eosinophils # (Auto) 0.5 x10^3/uL (0.0-0.7) Basophils # (Auto) 0.0 x10^3/uL (0.0-0.2) Sodium Level 142 mmol/L (136-145) Potassium Level 4.1 mmol/L (3.5-5.1) Chloride Level 105 mmol/L (98-107) Carbon Dioxide Level 22 mmol/L (21-32) Anion Gap 15 (6-14) Blood Urea Nitrogen 17 mg/dL (8-26) Creatinine 1.3 mg/dL (0.7-1.3) Estimated GFR (Cockcroft-Gault) 67.7 BUN/Creatinine Ratio 13 (6-20) Glucose Level 97 mg/dL (70-99) Calcium Level 9.4 mg/dL (8.5-10.1) Total Bilirubin 0.5 mg/dL (0.2-1.0) Aspartate Amino Transf (AST/SGOT) 13 U/L (15-37) Alanine Aminotransferase (ALT/SGPT) 23 U/L (16-63) Alkaline Phosphatase 64 U/L (46-116) Total Protein 7.8 g/dL (6.4-8.2) Albumin 3.5 g/dL (3.4-5.0) Albumin/Globulin Ratio 0.8 (1.0-1.7) Assessment and Plan Assessmemt and Plan Problems Medical Problems: (1) Acute renal injury Status: Acute (2) Dizziness Status: Acute (3) ETOH abuse Status: Acute (4) Head injury Status: Acute (5) UTI (urinary tract infection) Status: Acute Comment Review of Relevant I have reviewed the following items jose (where applicable) has been applied. Labs Laboratory Tests Test 05/22/19 17:23 05/22/19 19:35 05/23/19 00:50 05/23/19 02:55 White Blood Count 8.3 x10^3/uL (4.0-11.0) 6.2 x10^3/uL (4.0-11.0) Red Blood Count 4.76 x10^6/uL (4.30-5.70) 4.72 x10^6/uL (4.30-5.70) Hemoglobin 12.0 g/dL (13.0-17.5) 11.6 g/dL (13.0-17.5) Hematocrit 36.6 % (39.0-53.0) 36.4 % (39.0-53.0) Mean Corpuscular Volume 77 fL (79-100) 77 fL (79-100) Mean Corpuscular Hemoglobin 25 pg (25-35) 25 pg (25-35) Mean Corpuscular Hemoglobin Concent 33 g/dL (31-37) 32 g/dL (31-37) Red Cell Distribution Width 21.1 % (11.5-14.5) 20.8 % (11.5-14.5) Platelet Count 258 x10^3/uL (140-400) 250 x10^3/uL (140-400) Neutrophils (%) (Auto) 58 % (31-73) 62 % (31-73) Lymphocytes (%) (Auto) 28 % (24-48) 22 % (24-48) Monocytes (%) (Auto) 9 % (0-9) 9 % (0-9) Eosinophils (%) (Auto) 4 % (0-3) 7 % (0-3) Basophils (%) (Auto) 0 % (0-3) 0 % (0-3) Neutrophils # (Auto) 4.8 x10^3/uL (1.8-7.7) 3.8 x10^3/uL (1.8-7.7) Lymphocytes # (Auto) 2.3 x10^3/uL (1.0-4.8) 1.4 x10^3/uL (1.0-4.8) Monocytes # (Auto) 0.8 x10^3/uL (0.0-1.1) 0.5 x10^3/uL (0.0-1.1) Eosinophils # (Auto) 0.4 x10^3/uL (0.0-0.7) 0.4 x10^3/uL (0.0-0.7) Basophils # (Auto) 0.0 x10^3/uL (0.0-0.2) 0.0 x10^3/uL (0.0-0.2) Platelet Estimate Adequate (ADEQUATE) Anisocytosis Mod Sodium Level 139 mmol/L (136-145) 141 mmol/L (136-145) Potassium Level 4.0 mmol/L (3.5-5.1) 3.6 mmol/L (3.5-5.1) Chloride Level 101 mmol/L (98-107) 105 mmol/L (98-107) Carbon Dioxide Level 16 mmol/L (21-32) 19 mmol/L (21-32) Anion Gap 22 (6-14) 17 (6-14) Blood Urea Nitrogen 20 mg/dL (8-26) 20 mg/dL (8-26) Creatinine 2.5 mg/dL (0.7-1.3) 1.8 mg/dL (0.7-1.3) Estimated GFR (Cockcroft-Gault) 31.8 46.5 BUN/Creatinine Ratio 8 (6-20) 11 (6-20) Glucose Level 104 mg/dL (70-99) 118 mg/dL (70-99) Calcium Level 8.7 mg/dL (8.5-10.1) 8.7 mg/dL (8.5-10.1) Magnesium Level 1.9 mg/dL (1.8-2.4) Total Bilirubin 0.3 mg/dL (0.2-1.0) 0.2 mg/dL (0.2-1.0) Aspartate Amino Transf (AST/SGOT) 15 U/L (15-37) 13 U/L (15-37) Alanine Aminotransferase (ALT/SGPT) 24 U/L (16-63) 20 U/L (16-63) Alkaline Phosphatase 64 U/L (46-116) 60 U/L (46-116) Troponin I Quantitative < 0.017 ng/mL (0.000-0.055) < 0.017 ng/mL (0.000-0.055) < 0.017 ng/mL (0.000-0.055) Total Protein 7.1 g/dL (6.4-8.2) 7.2 g/dL (6.4-8.2) Albumin 3.5 g/dL (3.4-5.0) 3.2 g/dL (3.4-5.0) Albumin/Globulin Ratio 1.0 (1.0-1.7) 0.8 (1.0-1.7) Ethyl Alcohol Level 238 mg/dL (0-10) Urine Collection Type Unknown Urine Color Yellow Urine Clarity Clear Urine pH 5.5 Urine Specific [place] 1.010 Urine Protein Negative mg/dL (NEG-TRACE) Urine Glucose (UA) Negative mg/dL (NEG) Urine Ketones (Stick) Negative mg/dL (NEG) Urine Blood Negative (NEG) Urine Nitrite Negative (NEG) Urine Bilirubin Negative (NEG) Urine Urobilinogen Dipstick 1.0 mg/dL (0.2 mg/dL) Urine Leukocyte Esterase Small (NEG) Urine RBC 0 /HPF (0-2) Urine WBC 11-20 /HPF (0-4) Urine Squamous Epithelial Cells Few /LPF Urine Bacteria Few /HPF (0-FEW) Urine Hyaline Casts Many /HPF Urine Mucus Marked /LPF Urine Opiates Screen Neg (NEG) Urine Methadone Screen Neg (NEG) Urine Barbiturates Neg (NEG) Urine Phencyclidine Screen Neg (NEG) Urine Amphetamine/Methamphetamine Neg (NEG) Urine Benzodiazepines Screen Neg (NEG) Urine Cocaine Screen Neg (NEG) Urine Cannabinoids Screen Neg (NEG) Urine Ethyl Alcohol Pos (NEG) Iron Level 25 ug/dL (65-175) Total Iron Binding Capacity 451 ug/dL (250-450) Iron Saturation 6 % (15-34) Test 05/24/19 03:55 White Blood Count 7.2 x10^3/uL (4.0-11.0) Red Blood Count 5.12 x10^6/uL (4.30-5.70) Hemoglobin 12.6 g/dL (13.0-17.5) Hematocrit 39.4 % (39.0-53.0) Mean Corpuscular Volume 77 fL (79-100) Mean Corpuscular Hemoglobin 25 pg (25-35) Mean Corpuscular Hemoglobin Concent 32 g/dL (31-37) Red Cell Distribution Width 20.9 % (11.5-14.5) Platelet Count 274 x10^3/uL (140-400) Neutrophils (%) (Auto) 47 % (31-73) Lymphocytes (%) (Auto) 35 % (24-48) Monocytes (%) (Auto) 10 % (0-9) Eosinophils (%) (Auto) 7 % (0-3) Basophils (%) (Auto) 0 % (0-3) Neutrophils # (Auto) 3.4 x10^3/uL (1.8-7.7) Lymphocytes # (Auto) 2.5 x10^3/uL (1.0-4.8) Monocytes # (Auto) 0.7 x10^3/uL (0.0-1.1) Eosinophils # (Auto) 0.5 x10^3/uL (0.0-0.7) Basophils # (Auto) 0.0 x10^3/uL (0.0-0.2) Sodium Level 142 mmol/L (136-145) Potassium Level 4.1 mmol/L (3.5-5.1) Chloride Level 105 mmol/L (98-107) Carbon Dioxide Level 22 mmol/L (21-32) Anion Gap 15 (6-14) Blood Urea Nitrogen 17 mg/dL (8-26) Creatinine 1.3 mg/dL (0.7-1.3) Estimated GFR (Cockcroft-Gault) 67.7 BUN/Creatinine Ratio 13 (6-20) Glucose Level 97 mg/dL (70-99) Calcium Level 9.4 mg/dL (8.5-10.1) Total Bilirubin 0.5 mg/dL (0.2-1.0) Aspartate Amino Transf (AST/SGOT) 13 U/L (15-37) Alanine Aminotransferase (ALT/SGPT) 23 U/L (16-63) Alkaline Phosphatase 64 U/L (46-116) Total Protein 7.8 g/dL (6.4-8.2) Albumin 3.5 g/dL (3.4-5.0) Albumin/Globulin Ratio 0.8 (1.0-1.7) Laboratory Tests Test 05/24/19 03:55 White Blood Count 7.2 x10^3/uL (4.0-11.0) Red Blood Count 5.12 x10^6/uL (4.30-5.70) Hemoglobin 12.6 g/dL (13.0-17.5) Hematocrit 39.4 % (39.0-53.0) Mean Corpuscular Volume 77 fL (79-100) Mean Corpuscular Hemoglobin 25 pg (25-35) Mean Corpuscular Hemoglobin Concent 32 g/dL (31-37) Red Cell Distribution Width 20.9 % (11.5-14.5) Platelet Count 274 x10^3/uL (140-400) Neutrophils (%) (Auto) 47 % (31-73) Lymphocytes (%) (Auto) 35 % (24-48) Monocytes (%) (Auto) 10 % (0-9) Eosinophils (%) (Auto) 7 % (0-3) Basophils (%) (Auto) 0 % (0-3) Neutrophils # (Auto) 3.4 x10^3/uL (1.8-7.7) Lymphocytes # (Auto) 2.5 x10^3/uL (1.0-4.8) Monocytes # (Auto) 0.7 x10^3/uL (0.0-1.1) Eosinophils # (Auto) 0.5 x10^3/uL (0.0-0.7) Basophils # (Auto) 0.0 x10^3/uL (0.0-0.2) Sodium Level 142 mmol/L (136-145) Potassium Level 4.1 mmol/L (3.5-5.1) Chloride Level 105 mmol/L (98-107) Carbon Dioxide Level 22 mmol/L (21-32) Anion Gap 15 (6-14) Blood Urea Nitrogen 17 mg/dL (8-26) Creatinine 1.3 mg/dL (0.7-1.3) Estimated GFR (Cockcroft-Gault) 67.7 BUN/Creatinine Ratio 13 (6-20) Glucose Level 97 mg/dL (70-99) Calcium Level 9.4 mg/dL (8.5-10.1) Total Bilirubin 0.5 mg/dL (0.2-1.0) Aspartate Amino Transf (AST/SGOT) 13 U/L (15-37) Alanine Aminotransferase (ALT/SGPT) 23 U/L (16-63) Alkaline Phosphatase 64 U/L (46-116) Total Protein 7.8 g/dL (6.4-8.2) Albumin 3.5 g/dL (3.4-5.0) Albumin/Globulin Ratio 0.8 (1.0-1.7) Medications Current Medications Sodium Chloride 1,000 ml @ 1,000 mls/hr 1X ONCE IV Last administered on 05/22/19at 18:45; Start 05/22/19 at 18:30; Stop 05/22/19 at 19:29; Status DC Diphtheria/ Tetanus/Acell Pertussis (Boostrix) 0.5 ml ONCE ONCE VAX IM Last administered on 05/22/19at 20:53; Start 05/22/19 at 20:15; Stop 05/22/19 at 20:16; Status DC Ceftriaxone Sodium (Rocephin) 1 gm 1X ONCE IVP Last administered on 05/22/19at 20:15; Start 05/22/19 at 20:15; Stop 05/22/19 at 20:16; Status DC Acetaminophen (Tylenol) 650 mg 1X ONCE PO Last administered on 05/22/19at 20:48; Start 05/22/19 at 20:30; Stop 05/22/19 at 20:31; Status DC Ondansetron HCl (Zofran) 4 mg PRN Q8HRS PRN IV NAUSEA/VOMITING 1ST CHOICE; Start 05/22/19 at 21:15; Stop 05/23/19 at 21:14; Status DC Multivitamins 10 ml/Thiamine HCl 100 mg/Folic Acid 1 mg/Sodium Chloride 1,011.2 ml @ 100 mls/ hr DAILY IV Last administered on 05/23/19at 17:36; Start 05/23/19 at 16:15; Stop 05/27/19 at 19:07 Lorazepam (Ativan) 4 mg PRN Q1HR PRN PO For CIWA 8-14; Start 05/23/19 at 16:15 Lorazepam (Ativan) 8 mg PRN Q1HR PRN PO For CIWA 15 or greater; Start 05/23/19 at 16:15 Lorazepam (Ativan Inj) 2 mg PRN Q1HR PRN IV For CIWA 8-14; Start 05/23/19 at 16:15 Lorazepam (Ativan Inj) 4 mg PRN Q1HR PRN IV For CIWA 15 or greater; Start 05/23/19 at 16:15 Haloperidol Lactate (Haldol Inj) 5 mg PRN Q4HRS PRN IVP Hallucinatns,Confusn,Delirium; Start 05/23/19 at 16:15 Diphenhydramine HCl (Benadryl) 25 mg PRN Q15MIN PRN IVP EPS symptoms 2'Haldol admin; Start 05/23/19 at 16:15 Clonidine HCl (Catapres) 0.1 mg PRN Q1HR PRN PO SBP > 180 or DBP > 100, MRX3; Start 05/23/19 at 16:15 Amlodipine Besylate (Norvasc) 10 mg DAILY PO Last administered on 05/23/19 17:37; Start 05/23/19 at 17:00 Tamsulosin HCl (Flomax) 0.4 mg DAILY PO Last administered on 05/23/19 17:37; Start 05/23/19 at 17:00 Zolpidem Tartrate (Ambien) 5 mg QHS PO Last administered on 05/23/19 21:38; Start 05/23/19 at 21:00 Hydrochlorothiazide (Microzide) 12.5 mg DAILY PO Last administered on 05/23/19 17:37; Start 05/23/19 at 17:00 Losartan Potassium (Cozaar) 100 mg DAILY PO Last administered on 05/23/19 17:37; Start 05/23/19 at 17:00 Atorvastatin Calcium (Lipitor) 5 mg QHS PO Last administered on 05/23/19 21:38; Start 05/23/19 at 21:00 Metformin HCl (Glucophage) 500 mg DAILY08 PO Last administered on 05/23/19 17:37; Start 05/23/19 at 17:00 Pantoprazole Sodium (Protonix) 40 mg DAILYAC PO Last administered on 05/23/19 17:37; Start 05/23/19 at 16:30 Famotidine (Pepcid) 20 mg BID PO Last administered on 05/23/19 21:38; Start 05/23/19 at 21:00 Meclizine HCl (Antivert) 12.5 mg PRN Q6HRS PRN PO DIZZINESS; Start 05/24/19 at 15:00 Meclizine HCl (Antivert) 25 mg 1X ONCE PO ; Start 05/24/19 at 08:45; Stop 05/24/19 at 08:46; Status DC Active Scripts Active Reported Losartan Potassium 100 Mg Tablet 100 Mg PO DAILY Flomax (Tamsulosin Hcl) 0.4 Mg Cap.er.24h 0.4 Mg PO DAILY Hydrochlorothiazide Tablet (Hydrochlorothiazide) 12.5 Mg Tablet 12.5 Mg PO DAILY Metformin Hcl 500 Mg Tablet 500 Mg PO DAILY Lovastatin 20 Mg Tablet 1 Tab PO DAILY Amlodipine Besylate 10 Mg Tablet 10 Mg PO DAILY Omeprazole 20 Mg Tablet.dr 20 Mg PO DAILY Ambien (Zolpidem Tartrate) 5 Mg Tablet 1 Tab PO QHS Vitals/I & O Vital Sign - Last 24 Hours 05/23/19 05/23/19 05/23/19 05/23/19 11:43 15:18 17:37 17:37 Temp 97.9 98.4 97.9 98.4 Pulse 98 98 98 98 Resp 16 16 B/P (MAP) 137/85 (102) 122/82 (95) 122/82 122/82 Pulse Ox 97 97 O2 Delivery Room Air Room Air 05/23/19 05/23/19 05/23/19 05/24/19 19:35 20:15 23:35 03:40 Temp 98.2 98.3 98.1 98.2 98.3 98.1 Pulse 96 86 87 Resp 16 16 16 B/P (MAP) 137/79 (98) 122/83 (96) 134/83 (100) Pulse Ox 98 97 98 O2 Delivery Room Air Room Air Room Air Room Air 05/24/19 07:30 Temp 97.8 97.8 Pulse 91 Resp 18 B/P (MAP) 128/89 (102) Pulse Ox 98 O2 Delivery Room Air Intake and Output 05/23/19 05/23/19 05/24/19 14:59 22:59 06:59 Intake Total 350 ml 300 ml 1520 ml Balance 350 ml 300 ml 1520 ml SUMMER LARA MD May 24, 2019 09:53
[2019-05-24] MEDS: PANTOPRAZOLE 40 MG TABLET.DR. PO SCH (10:01)
[2019-05-24] MEDS: MULTIVIT INFUSN,ADULT 4,VIT K 10 ML, THIAMINE INJ 100 MG, FOLIC ACID INJ 1 MG in IV NOR... IV SCH (10:02)
[2019-05-24] MEDS: metFORMIN 500 MG TABLET PO SCH (10:02)
[2019-05-24] MEDS: amLODIPine BESYLATE 10 MG TABLET PO SCH (10:03)
[2019-05-24] MEDS: TAMSULOSIN 0.4 MG CAP.ER.24H. PO SCH (10:03)
[2019-05-24] MEDS: LOSARTAN POTASSIUM 50 MG TABLET. PO SCH (10:03)
[2019-05-24] MEDS: hydroCHLOROthiazide 12.5 MG CAPSULE PO SCH (10:03)
[2019-05-24] MEDS: FAMOTIDINE 20 MG TABLET. PO SCH ×2 (10:04→20:21)
[2019-05-24 11:00] VITALS: BP 156/102
--- NOTE | 2019-05-24 11:53 | PDOC2 ---
NEUROLOGY CONSULT Date of Admission Date of Admission DATE: 05/24/19 TIME: 11:46 Reason for Consult Reason for Consult: Concussion Referring Physician Referring Physician: Dr. Pantoja Source Source: Chart review, Patient History of Present Illness History of Present Illness The patient is a 64-year-old right-handed male heavy user of alcohol who drank a 5th of vodka on 05/22, lost consciousness, struck the back of his head on concrete, and was out for about 2 minutes. He regained consciousness but then lapsed unconscious again. His brought him to the emergency department.There is no history of stroke, seizure, or head injury.He denies headache or other neurological symptoms at this time, but does have some disequilibrium, without true vertigo or lightheadedness. The disequilibrium is worse when he moves. Past Medical History Cardiovascular: HTN GI: GERD Heme/Onc: Cancer (colon) Psych: Addictions Past Surgical History Past Surgical History: Hernia Repair Family History Family History: No pertinent hx Social History Social History , vodka every night, no tobacco Current Medications Current Medications Current Medications Sodium Chloride 1,000 ml @ 1,000 mls/hr 1X ONCE IV Last administered on 05/22/19at 18:45; Start 05/22/19 at 18:30; Stop 05/22/19 at 19:29; Status DC Diphtheria/ Tetanus/Acell Pertussis (Boostrix) 0.5 ml ONCE ONCE VAX IM Last administered on 05/22/19at 20:53; Start 05/22/19 at 20:15; Stop 05/22/19 at 20:16; Status DC Ceftriaxone Sodium (Rocephin) 1 gm 1X ONCE IVP Last administered on 05/22/19at 20:15; Start 05/22/19 at 20:15; Stop 05/22/19 at 20:16; Status DC Acetaminophen (Tylenol) 650 mg 1X ONCE PO Last administered on 05/22/19at 20:48; Start 05/22/19 at 20:30; Stop 05/22/19 at 20:31; Status DC Ondansetron HCl (Zofran) 4 mg PRN Q8HRS PRN IV NAUSEA/VOMITING 1ST CHOICE; Start 05/22/19 at 21:15; Stop 05/23/19 at 21:14; Status DC Multivitamins 10 ml/Thiamine HCl 100 mg/Folic Acid 1 mg/Sodium Chloride 1,011.2 ml @ 100 mls/ hr DAILY IV Last administered on 05/24/19at 10:04; Start 05/23/19 at 16:15; Stop 05/27/19 at 19:07 Lorazepam (Ativan) 4 mg PRN Q1HR PRN PO For CIWA 8-14; Start 05/23/19 at 16:15 Lorazepam (Ativan) 8 mg PRN Q1HR PRN PO For CIWA 15 or greater; Start 05/23/19 at 16:15 Lorazepam (Ativan Inj) 2 mg PRN Q1HR PRN IV For CIWA 8-14; Start 05/23/19 at 16:15 Lorazepam (Ativan Inj) 4 mg PRN Q1HR PRN IV For CIWA 15 or greater; Start 05/23/19 at 16:15 Haloperidol Lactate (Haldol Inj) 5 mg PRN Q4HRS PRN IVP Hallucinatns,Confusn,Delirium; Start 05/23/19 at 16:15 Diphenhydramine HCl (Benadryl) 25 mg PRN Q15MIN PRN IVP EPS symptoms 2'Haldol admin; Start 05/23/19 at 16:15 Clonidine HCl (Catapres) 0.1 mg PRN Q1HR PRN PO SBP > 180 or DBP > 100, MRX3; Start 05/23/19 at 16:15 Amlodipine Besylate (Norvasc) 10 mg DAILY PO Last administered on 05/24/19at 10:04; Start 05/23/19 at 17:00 Tamsulosin HCl (Flomax) 0.4 mg DAILY PO Last administered on 05/24/19at 10:04; Start 05/23/19 at 17:00 Zolpidem Tartrate (Ambien) 5 mg QHS PO Last administered on 05/23/19at 21:38; Start 05/23/19 at 21:00 Hydrochlorothiazide (Microzide) 12.5 mg DAILY PO Last administered on 05/24/19 10:04; Start 05/23/19 at 17:00 Losartan Potassium (Cozaar) 100 mg DAILY PO Last administered on 05/24/19at 10:04; Start 05/23/19 at 17:00 Atorvastatin Calcium (Lipitor) 5 mg QHS PO Last administered on 05/23/19at 21:38; Start 05/23/19 at 21:00 Metformin HCl (Glucophage) 500 mg DAILY08 PO Last administered on 05/24/19at 10:04; Start 05/23/19 at 17:00 Pantoprazole Sodium (Protonix) 40 mg DAILYAC PO Last administered on 05/24/19at 10:04; Start 05/23/19 at 16:30 Famotidine (Pepcid) 20 mg BID PO Last administered on 05/24/19at 10:04; Start 05/23/19 at 21:00 Meclizine HCl (Antivert) 12.5 mg PRN Q6HRS PRN PO DIZZINESS; Start 05/24/19 at 15:00 Meclizine HCl (Antivert) 25 mg 1X ONCE PO Last administered on 05/24/19at 10:04; Start 05/24/19 at 08:45; Stop 05/24/19 at 08:46; Status DC Active Scripts Active Reported Losartan Potassium 100 Mg Tablet 100 Mg PO DAILY Flomax (Tamsulosin Hcl) 0.4 Mg Cap.er.24h 0.4 Mg PO DAILY Hydrochlorothiazide Tablet (Hydrochlorothiazide) 12.5 Mg Tablet 12.5 Mg PO DAILY Metformin Hcl 500 Mg Tablet 500 Mg PO DAILY Lovastatin 20 Mg Tablet 1 Tab PO DAILY Amlodipine Besylate 10 Mg Tablet 10 Mg PO DAILY Omeprazole 20 Mg Tablet.dr 20 Mg PO DAILY Ambien (Zolpidem Tartrate) 5 Mg Tablet 1 Tab PO QHS Allergies Allergies: Coded Allergies: No Known Allergies (Verified Allergy, Unknown, 04/03/16) ROS Review of System Negative for fever, chills, weight loss, shortness of breath, chest pain, indigestion, hematochezia, melena, and dysuria. Full 14-point review of systems is negative. Physical Exam Physical Examination General: Well-developed, well-nourished black male in no acute distress HEENT: Normocephalic and�atraumatic. Tympanic membranes clear.�Temporal arteries�pulsatile and nontender.� Neck: Supple without bruit, no meningismus� Musculoskeletal: Stability:�see neurologic. Gait exam:�see neurologic. Tone:�see neurologic.�Strength:�see neurologic.� Neurological: Mental Status:�intact, orientation, memory, attention span/concentration, language, fund of knowledge normal. Cranial Nerves:�Pupils equal and reactive to light, extraocular movements are�intact, visual white are full to confrontation. Facial sensation is normal. There is no facial asymmetry. Vestibulo-ocular reflex is intact. Palate elevates and tongue protrudes in midline. All other cranial related problems are negative except as mentioned before.�Reflexes:�2+ and symmetric with flexor plantar responses. Motor:�5/5 strength with normal tone and bulk. Coordination:�Finger-nose finger and [id number] testing are normal. Rapid alternating movements and fine finger movements are intact. Gait:�not tested. Sensory:�Normal pinprick, vibration, light touch, proprioception.� Vitals VITALS Vital Signs Date Time Temp Pulse Resp B/P (MAP) Pulse Ox O2 Delivery O2 Flow Rate FiO2 05/24/19 10:04 91 128/89 05/24/19 07:30 97.8 18 98 Room Air 97.8 Labs Labs Laboratory Tests Test 05/22/19 17:23 05/22/19 19:35 05/23/19 00:50 05/23/19 02:55 White Blood Count 8.3 x10^3/uL (4.0-11.0) 6.2 x10^3/uL (4.0-11.0) Red Blood Count 4.76 x10^6/uL (4.30-5.70) 4.72 x10^6/uL (4.30-5.70) Hemoglobin 12.0 g/dL (13.0-17.5) 11.6 g/dL (13.0-17.5) Hematocrit 36.6 % (39.0-53.0) 36.4 % (39.0-53.0) Mean Corpuscular Volume 77 fL (79-100) 77 fL (79-100) Mean Corpuscular Hemoglobin 25 pg (25-35) 25 pg (25-35) Mean Corpuscular Hemoglobin Concent 33 g/dL (31-37) 32 g/dL (31-37) Red Cell Distribution Width 21.1 % (11.5-14.5) 20.8 % (11.5-14.5) Platelet Count 258 x10^3/uL (140-400) 250 x10^3/uL (140-400) Neutrophils (%) (Auto) 58 % (31-73) 62 % (31-73) Lymphocytes (%) (Auto) 28 % (24-48) 22 % (24-48) Monocytes (%) (Auto) 9 % (0-9) 9 % (0-9) Eosinophils (%) (Auto) 4 % (0-3) 7 % (0-3) Basophils (%) (Auto) 0 % (0-3) 0 % (0-3) Neutrophils # (Auto) 4.8 x10^3/uL (1.8-7.7) 3.8 x10^3/uL (1.8-7.7) Lymphocytes # (Auto) 2.3 x10^3/uL (1.0-4.8) 1.4 x10^3/uL (1.0-4.8) Monocytes # (Auto) 0.8 x10^3/uL (0.0-1.1) 0.5 x10^3/uL (0.0-1.1) Eosinophils # (Auto) 0.4 x10^3/uL (0.0-0.7) 0.4 x10^3/uL (0.0-0.7) Basophils # (Auto) 0.0 x10^3/uL (0.0-0.2) 0.0 x10^3/uL (0.0-0.2) Platelet Estimate Adequate (ADEQUATE) Anisocytosis Mod Sodium Level 139 mmol/L (136-145) 141 mmol/L (136-145) Potassium Level 4.0 mmol/L (3.5-5.1) 3.6 mmol/L (3.5-5.1) Chloride Level 101 mmol/L (98-107) 105 mmol/L (98-107) Carbon Dioxide Level 16 mmol/L (21-32) 19 mmol/L (21-32) Anion Gap 22 (6-14) 17 (6-14) Blood Urea Nitrogen 20 mg/dL (8-26) 20 mg/dL (8-26) Creatinine 2.5 mg/dL (0.7-1.3) 1.8 mg/dL (0.7-1.3) Estimated GFR (Cockcroft-Gault) 31.8 46.5 BUN/Creatinine Ratio 8 (6-20) 11 (6-20) Glucose Level 104 mg/dL (70-99) 118 mg/dL (70-99) Calcium Level 8.7 mg/dL (8.5-10.1) 8.7 mg/dL (8.5-10.1) Magnesium Level 1.9 mg/dL (1.8-2.4) Total Bilirubin 0.3 mg/dL (0.2-1.0) 0.2 mg/dL (0.2-1.0) Aspartate Amino Transf (AST/SGOT) 15 U/L (15-37) 13 U/L (15-37) Alanine Aminotransferase (ALT/SGPT) 24 U/L (16-63) 20 U/L (16-63) Alkaline Phosphatase 64 U/L (46-116) 60 U/L (46-116) Troponin I Quantitative < 0.017 ng/mL (0.000-0.055) < 0.017 ng/mL (0.000-0.055) < 0.017 ng/mL (0.000-0.055) Total Protein 7.1 g/dL (6.4-8.2) 7.2 g/dL (6.4-8.2) Albumin 3.5 g/dL (3.4-5.0) 3.2 g/dL (3.4-5.0) Albumin/Globulin Ratio 1.0 (1.0-1.7) 0.8 (1.0-1.7) Ethyl Alcohol Level 238 mg/dL (0-10) Urine Collection Type Unknown Urine Color Yellow Urine Clarity Clear Urine pH 5.5 Urine Specific [place] 1.010 Urine Protein Negative mg/dL (NEG-TRACE) Urine Glucose (UA) Negative mg/dL (NEG) Urine Ketones (Stick) Negative mg/dL (NEG) Urine Blood Negative (NEG) Urine Nitrite Negative (NEG) Urine Bilirubin Negative (NEG) Urine Urobilinogen Dipstick 1.0 mg/dL (0.2 mg/dL) Urine Leukocyte Esterase Small (NEG) Urine RBC 0 /HPF (0-2) Urine WBC 11-20 /HPF (0-4) Urine Squamous Epithelial Cells Few /LPF Urine Bacteria Few /HPF (0-FEW) Urine Hyaline Casts Many /HPF Urine Mucus Marked /LPF Urine Opiates Screen Neg (NEG) Urine Methadone Screen Neg (NEG) Urine Barbiturates Neg (NEG) Urine Phencyclidine Screen Neg (NEG) Urine Amphetamine/Methamphetamine Neg (NEG) Urine Benzodiazepines Screen Neg (NEG) Urine Cocaine Screen Neg (NEG) Urine Cannabinoids Screen Neg (NEG) Urine Ethyl Alcohol Pos (NEG) Iron Level 25 ug/dL (65-175) Total Iron Binding Capacity 451 ug/dL (250-450) Iron Saturation 6 % (15-34) Test 05/24/19 03:55 White Blood Count 7.2 x10^3/uL (4.0-11.0) Red Blood Count 5.12 x10^6/uL (4.30-5.70) Hemoglobin 12.6 g/dL (13.0-17.5) Hematocrit 39.4 % (39.0-53.0) Mean Corpuscular Volume 77 fL (79-100) Mean Corpuscular Hemoglobin 25 pg (25-35) Mean Corpuscular Hemoglobin Concent 32 g/dL (31-37) Red Cell Distribution Width 20.9 % (11.5-14.5) Platelet Count 274 x10^3/uL (140-400) Neutrophils (%) (Auto) 47 % (31-73) Lymphocytes (%) (Auto) 35 % (24-48) Monocytes (%) (Auto) 10 % (0-9) Eosinophils (%) (Auto) 7 % (0-3) Basophils (%) (Auto) 0 % (0-3) Neutrophils # (Auto) 3.4 x10^3/uL (1.8-7.7) Lymphocytes # (Auto) 2.5 x10^3/uL (1.0-4.8) Monocytes # (Auto) 0.7 x10^3/uL (0.0-1.1) Eosinophils # (Auto) 0.5 x10^3/uL (0.0-0.7) Basophils # (Auto) 0.0 x10^3/uL (0.0-0.2) Sodium Level 142 mmol/L (136-145) Potassium Level 4.1 mmol/L (3.5-5.1) Chloride Level 105 mmol/L (98-107) Carbon Dioxide Level 22 mmol/L (21-32) Anion Gap 15 (6-14) Blood Urea Nitrogen 17 mg/dL (8-26) Creatinine 1.3 mg/dL (0.7-1.3) Estimated GFR (Cockcroft-Gault) 67.7 BUN/Creatinine Ratio 13 (6-20) Glucose Level 97 mg/dL (70-99) Calcium Level 9.4 mg/dL (8.5-10.1) Total Bilirubin 0.5 mg/dL (0.2-1.0) Aspartate Amino Transf (AST/SGOT) 13 U/L (15-37) Alanine Aminotransferase (ALT/SGPT) 23 U/L (16-63) Alkaline Phosphatase 64 U/L (46-116) Total Protein 7.8 g/dL (6.4-8.2) Albumin 3.5 g/dL (3.4-5.0) Albumin/Globulin Ratio 0.8 (1.0-1.7) Laboratory Tests Test 05/24/19 03:55 White Blood Count 7.2 x10^3/uL (4.0-11.0) Red Blood Count 5.12 x10^6/uL (4.30-5.70) Hemoglobin 12.6 g/dL (13.0-17.5) Hematocrit 39.4 % (39.0-53.0) Mean Corpuscular Volume 77 fL (79-100) Mean Corpuscular Hemoglobin 25 pg (25-35) Mean Corpuscular Hemoglobin Concent 32 g/dL (31-37) Red Cell Distribution Width 20.9 % (11.5-14.5) Platelet Count 274 x10^3/uL (140-400) Neutrophils (%) (Auto) 47 % (31-73) Lymphocytes (%) (Auto) 35 % (24-48) Monocytes (%) (Auto) 10 % (0-9) Eosinophils (%) (Auto) 7 % (0-3) Basophils (%) (Auto) 0 % (0-3) Neutrophils # (Auto) 3.4 x10^3/uL (1.8-7.7) Lymphocytes # (Auto) 2.5 x10^3/uL (1.0-4.8) Monocytes # (Auto) 0.7 x10^3/uL (0.0-1.1) Eosinophils # (Auto) 0.5 x10^3/uL (0.0-0.7) Basophils # (Auto) 0.0 x10^3/uL (0.0-0.2) Sodium Level 142 mmol/L (136-145) Potassium Level 4.1 mmol/L (3.5-5.1) Chloride Level 105 mmol/L (98-107) Carbon Dioxide Level 22 mmol/L (21-32) Anion Gap 15 (6-14) Blood Urea Nitrogen 17 mg/dL (8-26) Creatinine 1.3 mg/dL (0.7-1.3) Estimated GFR (Cockcroft-Gault) 67.7 BUN/Creatinine Ratio 13 (6-20) Glucose Level 97 mg/dL (70-99) Calcium Level 9.4 mg/dL (8.5-10.1) Total Bilirubin 0.5 mg/dL (0.2-1.0) Aspartate Amino Transf (AST/SGOT) 13 U/L (15-37) Alanine Aminotransferase (ALT/SGPT) 23 U/L (16-63) Alkaline Phosphatase 64 U/L (46-116) Total Protein 7.8 g/dL (6.4-8.2) Albumin 3.5 g/dL (3.4-5.0) Albumin/Globulin Ratio 0.8 (1.0-1.7) Images Images CT scan of the head and cervical spine without contrast. Date of Service: January 2019 Comparison: None available Clinical History: Fall, alcohol intoxication, dizziness, loss of consciousness Technique: Helical acquisitions are obtained from the foramen magnum to the vertex without intravenous administration of contrast. In addition helical acquisitions are obtained through the cervical spine. Sagittal and coronal reformatted images are obtained and reviewed. CT scan head findings: The ventricular system is midline without evidence of dilatation. Normal razo-white differentiation is maintained. There is no extra axial fluid collection, intraparenchymal hemorrhage or mass lesion. The visualized orbits, paranasal sinuses and the mastoid air cells are clear. The calvarium is intact. Impression: 1. Normal non-contrast CT of the brain. End Impression. CT cervical spine findings: Straightening of the cervical curvature is noted. The vertebral body heights are maintained. There is narrowing of C3/4, C4/5 and C5/6 disc spaces, the remainder intravertebral disc spaces are maintained. Mild anterior osteophytes are seen centered mainly around C3-C6. There is no amara or retrolisthesis. No prevertebral soft tissue swelling is identified. There are no fractures. No definite lymphadenopathy or masses are seen within the neck. The visualized thyroid and salivary glands appears preserved. Impression: 1. No acute abnormality seen in the CT scan cervical spine. 2. Spondylotic changes and multilevel disc degenerative changes are noted. Assessment/Plan Assessment/Plan Impression: Concussion with loss of consciousness less than 30 minutes, he is complaining of continued dizziness but denies headache. His neurological examination is negative for central or peripheral vestibular dysfunction Alcoholism Recommendations: Meclizine Vestibular rehabilitation Holding off on repeat brain imaging but he should have an MRI of the brain if he is no better in the next few weeks. Follow-up with neurology of no better in a few weeks. I discussed the nature of postconcussion syndrome with the patient. I told him to abstain from alcohol Thank you for letting me help with the patient's care. TOMMY JUAN MD May 24, 2019 11:53
--- NOTE | 2019-05-24 12:05 | NUR ---
SW following pt for dc needs. Chart reviewed and discussed with RN. Pt lives at home with family and is evaluated by [facility] team for ETOH use. Pt agreeable to follow up with [facility] for inpt and Op tx after dc. Pt is provided with resources for AA, community resources and will follow up with employer for in network providers for substance use.
[2019-05-24 15:00] VITALS: BP 131/84
[2019-05-24] MEDS ORDERED: MECLIZINE HCL 12.5 MG TABLET. PO PRN (15:00)
[2019-05-24 19:30] VITALS: BP 120/81
[2019-05-24] MEDS: ZOLPIDEM 5 MG TABLET. PO SCH (20:21)
[2019-05-24] MEDS: ATORVASTATIN CALCIUM 10 MG TABLET. PO SCH (20:21)
[2019-05-24 23:35] VITALS: BP 133/91
[2019-05-25 03:46] VITALS: BP 136/92
[2019-05-25 05:05] LABS: BASO % 1 % (0-3); EOS # 0.5 x10^3/uL (0.0-0.7); EOS % 9 % (0-3); HEMATOCRIT 37.7 % (39.0-53.0); LYMPH # 1.7 x10^3/uL (1.0-4.8); LYMPH % 28 % (24-48); MEAN CORPUSCULAR HEMOGLOBIN 25 pg (25-35); MEAN CORPUSCULAR HGB CONC 32 g/dL (31-37); MEAN CORPUSCULAR VOLUME 77 fL (79-100); MONO # 0.7 x10^3/uL (0.0-1.1); MONO % 11 % (0-9); NEUT # 3.3 x10^3/uL (1.8-7.7); NEUT % 52 % (31-73); PLATELET COUNT 260 x10^3/uL (140-400); RED BLOOD COUNT 4.88 x10^6/uL (4.30-5.70); RED CELL DISTRIBUTION WIDTH 20.7 % (11.5-14.5); WHITE BLOOD COUNT 6.3 x10^3/uL (4.0-11.0)
[2019-05-25 06:15] LABS: ALBUMIN 3.4 g/dL (3.4-5.0); ALBUMIN/GLOBULIN RATIO 0.8 (1.0-1.7); CALCIUM 9.1 mg/dL (8.5-10.1); CREATININE 1.2 mg/dL (0.7-1.3); GFR 74.2; TOTAL BILIRUBIN 0.4 mg/dL (0.2-1.0); TOTAL PROTEIN 7.5 g/dL (6.4-8.2)
[2019-05-25 07:56] VITALS: BP 132/92
[2019-05-25] MEDS: amLODIPine BESYLATE 10 MG TABLET PO SCH (08:54)
[2019-05-25] MEDS: hydroCHLOROthiazide 12.5 MG CAPSULE PO SCH (08:54)
[2019-05-25] MEDS: PANTOPRAZOLE 40 MG TABLET.DR. PO SCH (08:55)
[2019-05-25] MEDS: TAMSULOSIN 0.4 MG CAP.ER.24H. PO SCH (08:55)
[2019-05-25] MEDS: metFORMIN 500 MG TABLET PO SCH (08:55)
[2019-05-25] MEDS: FAMOTIDINE 20 MG TABLET. PO SCH ×2 (08:55→21:50)
[2019-05-25] MEDS: LOSARTAN POTASSIUM 50 MG TABLET. PO SCH (08:55)
[2019-05-25] MEDS: MULTIVIT INFUSN,ADULT 4,VIT K 10 ML, THIAMINE INJ 100 MG, FOLIC ACID INJ 1 MG in IV NOR... IV SCH (09:03)
--- NOTE | 2019-05-25 10:16 | PDOC2 ---
CONSULT Date of Consult Date of Consult DATE: 05/25/19 TIME: 09:57 Reason for Consult Reason for Consult: ELIECER Source Source: Patient History of Present Illness Reason for Visit: Pt is a 64 yo male presented to ER via EMS for complaints of dizziness, EtOH, and fall. He had a fifth of vodka on 05/22 and had episode where he became lightheaded and dizzy. He fell backwards striking his head on concrete. No chest pain or shortness of air. No N/V/D. No urinary complaints . Denies NSAID use. Denies PMHx of kidney disease He is heavy drinker and drinks every night after work Past Medical History Cardiovascular: HTN Pulmonary: No pertinent hx CENTRAL NERVOUS SYSTEM: Other GI: GERD Heme/Onc: Cancer (colon) Hepatobiliary: No pertinent hx Psych: Addictions Musculoskeletal: Osteoarthritis Infectious disease: No pertinent hx Renal/: No pertinent hx Endocrine: No pertinent hx Past Surgical History Past Surgical History: Hernia Repair Family History Family History: Alcohol Abuse, Coronary Artery Disease, Diabetes Social History <1 pack per day ALCOHOL: heavy Drugs: None Lives: with Family Current Problem List Problem List Problems Medical Problems: (1) Acute renal injury Status: Acute (2) Dizziness Status: Acute (3) ETOH abuse Status: Acute (4) Head injury Status: Acute (5) UTI (urinary tract infection) Status: Acute Current Medications Current Medications Current Medications Sodium Chloride 1,000 ml @ 1,000 mls/hr 1X ONCE IV Last administered on 05/22/19at 18:45; Start 05/22/19 at 18:30; Stop 05/22/19 at 19:29; Status DC Diphtheria/ Tetanus/Acell Pertussis (Boostrix) 0.5 ml ONCE ONCE VAX IM Last administered on 05/22/19at 20:53; Start 05/22/19 at 20:15; Stop 05/22/19 at 20:16; Status DC Ceftriaxone Sodium (Rocephin) 1 gm 1X ONCE IVP Last administered on 05/22/19at 20:15; Start 05/22/19 at 20:15; Stop 05/22/19 at 20:16; Status DC Acetaminophen (Tylenol) 650 mg 1X ONCE PO Last administered on 05/22/19at 20:48; Start 05/22/19 at 20:30; Stop 05/22/19 at 20:31; Status DC Ondansetron HCl (Zofran) 4 mg PRN Q8HRS PRN IV NAUSEA/VOMITING 1ST CHOICE; Start 05/22/19 at 21:15; Stop 05/23/19 at 21:14; Status DC Multivitamins 10 ml/Thiamine HCl 100 mg/Folic Acid 1 mg/Sodium Chloride 1,011.2 ml @ 100 mls/ hr DAILY IV Last administered on 05/25/19 09:03; Start 05/23/19 at 16:15; Stop 05/27/19 at 19:07 Lorazepam (Ativan) 4 mg PRN Q1HR PRN PO For CIWA 8-14; Start 05/23/19 at 16:15 Lorazepam (Ativan) 8 mg PRN Q1HR PRN PO For CIWA 15 or greater; Start 05/23/19 at 16:15 Lorazepam (Ativan Inj) 2 mg PRN Q1HR PRN IV For CIWA 8-14; Start 05/23/19 at 16:15 Lorazepam (Ativan Inj) 4 mg PRN Q1HR PRN IV For CIWA 15 or greater; Start 05/23/19 at 16:15 Haloperidol Lactate (Haldol Inj) 5 mg PRN Q4HRS PRN IVP Hallucinatns,Confusn,Delirium; Start 05/23/19 at 16:15 Diphenhydramine HCl (Benadryl) 25 mg PRN Q15MIN PRN IVP EPS symptoms 2'Haldol admin; Start 05/23/19 at 16:15 Clonidine HCl (Catapres) 0.1 mg PRN Q1HR PRN PO SBP > 180 or DBP > 100, MRX3; Start 05/23/19 at 16:15 Amlodipine Besylate (Norvasc) 10 mg DAILY PO Last administered on 05/25/19 09:03; Start 05/23/19 at 17:00 Tamsulosin HCl (Flomax) 0.4 mg DAILY PO Last administered on 05/25/19 09:03; Start 05/23/19 at 17:00 Zolpidem Tartrate (Ambien) 5 mg QHS PO Last administered on 05/24/19 20:21; Start 05/23/19 at 21:00 Hydrochlorothiazide (Microzide) 12.5 mg DAILY PO Last administered on 05/25/19 09:03; Start 05/23/19 at 17:00 Losartan Potassium (Cozaar) 100 mg DAILY PO Last administered on 05/25/19 09:03; Start 05/23/19 at 17:00 Atorvastatin Calcium (Lipitor) 5 mg QHS PO Last administered on 05/24/19 20:21; Start 05/23/19 at 21:00 Metformin HCl (Glucophage) 500 mg DAILY08 PO Last administered on 05/25/19 09:03; Start 05/23/19 at 17:00 Pantoprazole Sodium (Protonix) 40 mg DAILYAC PO Last administered on 05/25/19 09:03; Start 05/23/19 at 16:30 Famotidine (Pepcid) 20 mg BID PO Last administered on 05/25/19 09:03; Start 05/23/19 at 21:00 Meclizine HCl (Antivert) 12.5 mg PRN Q6HRS PRN PO DIZZINESS; Start 05/24/19 at 15:00 Meclizine HCl (Antivert) 25 mg 1X ONCE PO Last administered on 05/24/19 10:04; Start 05/24/19 at 08:45; Stop 05/24/19 at 08:46; Status DC Active Scripts Active Reported Losartan Potassium 100 Mg Tablet 100 Mg PO DAILY Flomax (Tamsulosin Hcl) 0.4 Mg Cap.er.24h 0.4 Mg PO DAILY Hydrochlorothiazide Tablet (Hydrochlorothiazide) 12.5 Mg Tablet 12.5 Mg PO DAILY Metformin Hcl 500 Mg Tablet 500 Mg PO DAILY Lovastatin 20 Mg Tablet 1 Tab PO DAILY Amlodipine Besylate 10 Mg Tablet 10 Mg PO DAILY Omeprazole 20 Mg Tablet.dr 20 Mg PO DAILY Ambien (Zolpidem Tartrate) 5 Mg Tablet 1 Tab PO QHS Allergies Allergies: Coded Allergies: No Known Allergies (Verified Allergy, Unknown, 04/03/16) ROS Review of System Per HPI Physical Exam Physical Exam GEN: NAD EYES: No icterus EN: OM moist NECK: Supple, CVS: S1S2, RESP:CTA, No Acc. Muscle Use GI: Non Tender, Non Distended : No CVA tenderness, No Suprapubic Tenderness, No Hernandez SKIN No Rash NEURO- Grossly normal Vital Signs Vital Signs Date Time Temp Pulse Resp B/P (MAP) Pulse Ox O2 Delivery O2 Flow Rate FiO2 05/25/19 09:03 96 132/92 05/25/19 07:56 98.3 16 96 Room Air 98.3 Assessment & Plan ELIECER- Pre-renal Renal function improved with IVF E-Lytes and acid base stable Supportive care, avoid nephrotoxins Alcohol abuse- Heavy ETOH use every day HTN- On losartan and HCTZ per med list DM- On Metformin Will sign off Labs Labs Laboratory Tests Test 05/24/19 03:55 05/25/19 03:25 White Blood Count 7.2 x10^3/uL (4.0-11.0) 6.3 x10^3/uL (4.0-11.0) Red Blood Count 5.12 x10^6/uL (4.30-5.70) 4.88 x10^6/uL (4.30-5.70) Hemoglobin 12.6 g/dL (13.0-17.5) 12.0 g/dL (13.0-17.5) Hematocrit 39.4 % (39.0-53.0) 37.7 % (39.0-53.0) Mean Corpuscular Volume 77 fL (79-100) 77 fL (79-100) Mean Corpuscular Hemoglobin 25 pg (25-35) 25 pg (25-35) Mean Corpuscular Hemoglobin Concent 32 g/dL (31-37) 32 g/dL (31-37) Red Cell Distribution Width 20.9 % (11.5-14.5) 20.7 % (11.5-14.5) Platelet Count 274 x10^3/uL (140-400) 260 x10^3/uL (140-400) Neutrophils (%) (Auto) 47 % (31-73) 52 % (31-73) Lymphocytes (%) (Auto) 35 % (24-48) 28 % (24-48) Monocytes (%) (Auto) 10 % (0-9) 11 % (0-9) Eosinophils (%) (Auto) 7 % (0-3) 9 % (0-3) Basophils (%) (Auto) 0 % (0-3) 1 % (0-3) Neutrophils # (Auto) 3.4 x10^3/uL (1.8-7.7) 3.3 x10^3/uL (1.8-7.7) Lymphocytes # (Auto) 2.5 x10^3/uL (1.0-4.8) 1.7 x10^3/uL (1.0-4.8) Monocytes # (Auto) 0.7 x10^3/uL (0.0-1.1) 0.7 x10^3/uL (0.0-1.1) Eosinophils # (Auto) 0.5 x10^3/uL (0.0-0.7) 0.5 x10^3/uL (0.0-0.7) Basophils # (Auto) 0.0 x10^3/uL (0.0-0.2) 0.0 x10^3/uL (0.0-0.2) Sodium Level 142 mmol/L (136-145) 140 mmol/L (136-145) Potassium Level 4.1 mmol/L (3.5-5.1) 4.0 mmol/L (3.5-5.1) Chloride Level 105 mmol/L (98-107) 105 mmol/L (98-107) Carbon Dioxide Level 22 mmol/L (21-32) 22 mmol/L (21-32) Anion Gap 15 (6-14) 13 (6-14) Blood Urea Nitrogen 17 mg/dL (8-26) 16 mg/dL (8-26) Creatinine 1.3 mg/dL (0.7-1.3) 1.2 mg/dL (0.7-1.3) Estimated GFR (Cockcroft-Gault) 67.7 74.2 BUN/Creatinine Ratio 13 (6-20) 13 (6-20) Glucose Level 97 mg/dL (70-99) 80 mg/dL (70-99) Calcium Level 9.4 mg/dL (8.5-10.1) 9.1 mg/dL (8.5-10.1) Total Bilirubin 0.5 mg/dL (0.2-1.0) 0.4 mg/dL (0.2-1.0) Aspartate Amino Transf (AST/SGOT) 13 U/L (15-37) 14 U/L (15-37) Alanine Aminotransferase (ALT/SGPT) 23 U/L (16-63) 21 U/L (16-63) Alkaline Phosphatase 64 U/L (46-116) 56 U/L (46-116) Total Protein 7.8 g/dL (6.4-8.2) 7.5 g/dL (6.4-8.2) Albumin 3.5 g/dL (3.4-5.0) 3.4 g/dL (3.4-5.0) Albumin/Globulin Ratio 0.8 (1.0-1.7) 0.8 (1.0-1.7) Laboratory Tests Test 05/25/19 03:25 White Blood Count 6.3 x10^3/uL (4.0-11.0) Red Blood Count 4.88 x10^6/uL (4.30-5.70) Hemoglobin 12.0 g/dL (13.0-17.5) Hematocrit 37.7 % (39.0-53.0) Mean Corpuscular Volume 77 fL (79-100) Mean Corpuscular Hemoglobin 25 pg (25-35) Mean Corpuscular Hemoglobin Concent 32 g/dL (31-37) Red Cell Distribution Width 20.7 % (11.5-14.5) Platelet Count 260 x10^3/uL (140-400) Neutrophils (%) (Auto) 52 % (31-73) Lymphocytes (%) (Auto) 28 % (24-48) Monocytes (%) (Auto) 11 % (0-9) Eosinophils (%) (Auto) 9 % (0-3) Basophils (%) (Auto) 1 % (0-3) Neutrophils # (Auto) 3.3 x10^3/uL (1.8-7.7) Lymphocytes # (Auto) 1.7 x10^3/uL (1.0-4.8) Monocytes # (Auto) 0.7 x10^3/uL (0.0-1.1) Eosinophils # (Auto) 0.5 x10^3/uL (0.0-0.7) Basophils # (Auto) 0.0 x10^3/uL (0.0-0.2) Sodium Level 140 mmol/L (136-145) Potassium Level 4.0 mmol/L (3.5-5.1) Chloride Level 105 mmol/L (98-107) Carbon Dioxide Level 22 mmol/L (21-32) Anion Gap 13 (6-14) Blood Urea Nitrogen 16 mg/dL (8-26) Creatinine 1.2 mg/dL (0.7-1.3) Estimated GFR (Cockcroft-Gault) 74.2 BUN/Creatinine Ratio 13 (6-20) Glucose Level 80 mg/dL (70-99) Calcium Level 9.1 mg/dL (8.5-10.1) Total Bilirubin 0.4 mg/dL (0.2-1.0) Aspartate Amino Transf (AST/SGOT) 14 U/L (15-37) Alanine Aminotransferase (ALT/SGPT) 21 U/L (16-63) Alkaline Phosphatase 56 U/L (46-116) Total Protein 7.5 g/dL (6.4-8.2) Albumin 3.4 g/dL (3.4-5.0) Albumin/Globulin Ratio 0.8 (1.0-1.7) Review All relevant outside records, renal labs, imaging studies, telemetry/EKG's were reviewed. PABLO CABELLO MD May 25, 2019 10:16
--- NOTE | 2019-05-25 10:19 | PDOC ---
PROGRESS NOTES History of Present Illness History of Present Illness VTE Prophylaxis Ordered VTE Prophylaxis Devices: Yes VTE Pharmacological Prophylaxi: Yes Assessment/Plan Assessment/Plan Impression: 1. alcohol abuse 2. No acute abnormality seen in the CT scan cervical spine. 3. Spondylotic changes and multilevel disc degenerative changes are noted. 4. fall with LOC 5. Head injury ////WITH POST CONCUSSION SYNDROME 6. acute renal failure, vasomotor nephropathy/ CKD ///BY CHART REVIEW, improved 7. tobacco abuse 8. microcytic anemia plan admit fall precautions alcohol withdrawal precautions banana bag, iv fluid support TELE Neurochecks q 4 hrs neurology consult scd's, dvt prophylaxis po pepsid gi prophylaxis frequent labs nephrology consult has signed off fe panel NEEDS ETOH REHAB D/W prefers inpatient rehab vestibular rehab needed ECHO TO EVAL EF 27 MIN PT EXAM, CHART REVIEW, > 50% OF TIME SPENT WITH EXAM, CHART REVIEW, PT CARE COORDINATION Vitals Vitals Vital Signs Date Time Temp Pulse Resp B/P (MAP) Pulse Ox O2 Delivery O2 Flow Rate FiO2 05/25/19 09:03 96 132/92 05/25/19 07:56 98.3 16 96 Room Air 98.3 Physical Exam General: Alert, Oriented X3, Cooperative, No acute distress Heart: Regular rate, Normal S1, Normal S2 Lungs: Clear Abdomen: Normal bowel sounds, Soft Extremities: No cyanosis, No edema Skin: No significant lesion Labs LABS Laboratory Tests Test 05/25/19 03:25 White Blood Count 6.3 x10^3/uL (4.0-11.0) Red Blood Count 4.88 x10^6/uL (4.30-5.70) Hemoglobin 12.0 g/dL (13.0-17.5) Hematocrit 37.7 % (39.0-53.0) Mean Corpuscular Volume 77 fL (79-100) Mean Corpuscular Hemoglobin 25 pg (25-35) Mean Corpuscular Hemoglobin Concent 32 g/dL (31-37) Red Cell Distribution Width 20.7 % (11.5-14.5) Platelet Count 260 x10^3/uL (140-400) Neutrophils (%) (Auto) 52 % (31-73) Lymphocytes (%) (Auto) 28 % (24-48) Monocytes (%) (Auto) 11 % (0-9) Eosinophils (%) (Auto) 9 % (0-3) Basophils (%) (Auto) 1 % (0-3) Neutrophils # (Auto) 3.3 x10^3/uL (1.8-7.7) Lymphocytes # (Auto) 1.7 x10^3/uL (1.0-4.8) Monocytes # (Auto) 0.7 x10^3/uL (0.0-1.1) Eosinophils # (Auto) 0.5 x10^3/uL (0.0-0.7) Basophils # (Auto) 0.0 x10^3/uL (0.0-0.2) Sodium Level 140 mmol/L (136-145) Potassium Level 4.0 mmol/L (3.5-5.1) Chloride Level 105 mmol/L (98-107) Carbon Dioxide Level 22 mmol/L (21-32) Anion Gap 13 (6-14) Blood Urea Nitrogen 16 mg/dL (8-26) Creatinine 1.2 mg/dL (0.7-1.3) Estimated GFR (Cockcroft-Gault) 74.2 BUN/Creatinine Ratio 13 (6-20) Glucose Level 80 mg/dL (70-99) Calcium Level 9.1 mg/dL (8.5-10.1) Total Bilirubin 0.4 mg/dL (0.2-1.0) Aspartate Amino Transf (AST/SGOT) 14 U/L (15-37) Alanine Aminotransferase (ALT/SGPT) 21 U/L (16-63) Alkaline Phosphatase 56 U/L (46-116) Total Protein 7.5 g/dL (6.4-8.2) Albumin 3.4 g/dL (3.4-5.0) Albumin/Globulin Ratio 0.8 (1.0-1.7) Assessment and Plan Assessmemt and Plan Problems Medical Problems: (1) Acute renal injury Status: Acute (2) Dizziness Status: Acute (3) ETOH abuse Status: Acute (4) Head injury Status: Acute (5) UTI (urinary tract infection) Status: Acute Comment Review of Relevant I have reviewed the following items jose (where applicable) has been applied. Labs Laboratory Tests Test 05/24/19 03:55 05/25/19 03:25 White Blood Count 7.2 x10^3/uL (4.0-11.0) 6.3 x10^3/uL (4.0-11.0) Red Blood Count 5.12 x10^6/uL (4.30-5.70) 4.88 x10^6/uL (4.30-5.70) Hemoglobin 12.6 g/dL (13.0-17.5) 12.0 g/dL (13.0-17.5) Hematocrit 39.4 % (39.0-53.0) 37.7 % (39.0-53.0) Mean Corpuscular Volume 77 fL (79-100) 77 fL (79-100) Mean Corpuscular Hemoglobin 25 pg (25-35) 25 pg (25-35) Mean Corpuscular Hemoglobin Concent 32 g/dL (31-37) 32 g/dL (31-37) Red Cell Distribution Width 20.9 % (11.5-14.5) 20.7 % (11.5-14.5) Platelet Count 274 x10^3/uL (140-400) 260 x10^3/uL (140-400) Neutrophils (%) (Auto) 47 % (31-73) 52 % (31-73) Lymphocytes (%) (Auto) 35 % (24-48) 28 % (24-48) Monocytes (%) (Auto) 10 % (0-9) 11 % (0-9) Eosinophils (%) (Auto) 7 % (0-3) 9 % (0-3) Basophils (%) (Auto) 0 % (0-3) 1 % (0-3) Neutrophils # (Auto) 3.4 x10^3/uL (1.8-7.7) 3.3 x10^3/uL (1.8-7.7) Lymphocytes # (Auto) 2.5 x10^3/uL (1.0-4.8) 1.7 x10^3/uL (1.0-4.8) Monocytes # (Auto) 0.7 x10^3/uL (0.0-1.1) 0.7 x10^3/uL (0.0-1.1) Eosinophils # (Auto) 0.5 x10^3/uL (0.0-0.7) 0.5 x10^3/uL (0.0-0.7) Basophils # (Auto) 0.0 x10^3/uL (0.0-0.2) 0.0 x10^3/uL (0.0-0.2) Sodium Level 142 mmol/L (136-145) 140 mmol/L (136-145) Potassium Level 4.1 mmol/L (3.5-5.1) 4.0 mmol/L (3.5-5.1) Chloride Level 105 mmol/L (98-107) 105 mmol/L (98-107) Carbon Dioxide Level 22 mmol/L (21-32) 22 mmol/L (21-32) Anion Gap 15 (6-14) 13 (6-14) Blood Urea Nitrogen 17 mg/dL (8-26) 16 mg/dL (8-26) Creatinine 1.3 mg/dL (0.7-1.3) 1.2 mg/dL (0.7-1.3) Estimated GFR (Cockcroft-Gault) 67.7 74.2 BUN/Creatinine Ratio 13 (6-20) 13 (6-20) Glucose Level 97 mg/dL (70-99) 80 mg/dL (70-99) Calcium Level 9.4 mg/dL (8.5-10.1) 9.1 mg/dL (8.5-10.1) Total Bilirubin 0.5 mg/dL (0.2-1.0) 0.4 mg/dL (0.2-1.0) Aspartate Amino Transf (AST/SGOT) 13 U/L (15-37) 14 U/L (15-37) Alanine Aminotransferase (ALT/SGPT) 23 U/L (16-63) 21 U/L (16-63) Alkaline Phosphatase 64 U/L (46-116) 56 U/L (46-116) Total Protein 7.8 g/dL (6.4-8.2) 7.5 g/dL (6.4-8.2) Albumin 3.5 g/dL (3.4-5.0) 3.4 g/dL (3.4-5.0) Albumin/Globulin Ratio 0.8 (1.0-1.7) 0.8 (1.0-1.7) Laboratory Tests Test 05/25/19 03:25 White Blood Count 6.3 x10^3/uL (4.0-11.0) Red Blood Count 4.88 x10^6/uL (4.30-5.70) Hemoglobin 12.0 g/dL (13.0-17.5) Hematocrit 37.7 % (39.0-53.0) Mean Corpuscular Volume 77 fL (79-100) Mean Corpuscular Hemoglobin 25 pg (25-35) Mean Corpuscular Hemoglobin Concent 32 g/dL (31-37) Red Cell Distribution Width 20.7 % (11.5-14.5) Platelet Count 260 x10^3/uL (140-400) Neutrophils (%) (Auto) 52 % (31-73) Lymphocytes (%) (Auto) 28 % (24-48) Monocytes (%) (Auto) 11 % (0-9) Eosinophils (%) (Auto) 9 % (0-3) Basophils (%) (Auto) 1 % (0-3) Neutrophils # (Auto) 3.3 x10^3/uL (1.8-7.7) Lymphocytes # (Auto) 1.7 x10^3/uL (1.0-4.8) Monocytes # (Auto) 0.7 x10^3/uL (0.0-1.1) Eosinophils # (Auto) 0.5 x10^3/uL (0.0-0.7) Basophils # (Auto) 0.0 x10^3/uL (0.0-0.2) Sodium Level 140 mmol/L (136-145) Potassium Level 4.0 mmol/L (3.5-5.1) Chloride Level 105 mmol/L (98-107) Carbon Dioxide Level 22 mmol/L (21-32) Anion Gap 13 (6-14) Blood Urea Nitrogen 16 mg/dL (8-26) Creatinine 1.2 mg/dL (0.7-1.3) Estimated GFR (Cockcroft-Gault) 74.2 BUN/Creatinine Ratio 13 (6-20) Glucose Level 80 mg/dL (70-99) Calcium Level 9.1 mg/dL (8.5-10.1) Total Bilirubin 0.4 mg/dL (0.2-1.0) Aspartate Amino Transf (AST/SGOT) 14 U/L (15-37) Alanine Aminotransferase (ALT/SGPT) 21 U/L (16-63) Alkaline Phosphatase 56 U/L (46-116) Total Protein 7.5 g/dL (6.4-8.2) Albumin 3.4 g/dL (3.4-5.0) Albumin/Globulin Ratio 0.8 (1.0-1.7) Medications Current Medications Sodium Chloride 1,000 ml @ 1,000 mls/hr 1X ONCE IV Last administered on 05/22/19at 18:45; Start 05/22/19 at 18:30; Stop 05/22/19 at 19:29; Status DC Diphtheria/ Tetanus/Acell Pertussis (Boostrix) 0.5 ml ONCE ONCE VAX IM Last administered on 05/22/19at 20:53; Start 05/22/19 at 20:15; Stop 05/22/19 at 20:16; Status DC Ceftriaxone Sodium (Rocephin) 1 gm 1X ONCE IVP Last administered on 05/22/19at 20:15; Start 05/22/19 at 20:15; Stop 05/22/19 at 20:16; Status DC Acetaminophen (Tylenol) 650 mg 1X ONCE PO Last administered on 05/22/19at 20:48; Start 05/22/19 at 20:30; Stop 05/22/19 at 20:31; Status DC Ondansetron HCl (Zofran) 4 mg PRN Q8HRS PRN IV NAUSEA/VOMITING 1ST CHOICE; Start 05/22/19 at 21:15; Stop 05/23/19 at 21:14; Status DC Multivitamins 10 ml/Thiamine HCl 100 mg/Folic Acid 1 mg/Sodium Chloride 1,011.2 ml @ 100 mls/ hr DAILY IV Last administered on 05/25/19at 09:03; Start 05/23/19 at 16:15; Stop 05/27/19 at 19:07 Lorazepam (Ativan) 4 mg PRN Q1HR PRN PO For CIWA 8-14; Start 05/23/19 at 16:15 Lorazepam (Ativan) 8 mg PRN Q1HR PRN PO For CIWA 15 or greater; Start 05/23/19 at 16:15 Lorazepam (Ativan Inj) 2 mg PRN Q1HR PRN IV For CIWA 8-14; Start 05/23/19 at 16:15 Lorazepam (Ativan Inj) 4 mg PRN Q1HR PRN IV For CIWA 15 or greater; Start 05/23/19 at 16:15 Haloperidol Lactate (Haldol Inj) 5 mg PRN Q4HRS PRN IVP Hallucinatns,Confusn,Delirium; Start 05/23/19 at 16:15 Diphenhydramine HCl (Benadryl) 25 mg PRN Q15MIN PRN IVP EPS symptoms 2'Haldol admin; Start 05/23/19 at 16:15 Clonidine HCl (Catapres) 0.1 mg PRN Q1HR PRN PO SBP > 180 or DBP > 100, MRX3; Start 05/23/19 at 16:15 Amlodipine Besylate (Norvasc) 10 mg DAILY PO Last administered on 05/25/19 09:03; Start 05/23/19 at 17:00 Tamsulosin HCl (Flomax) 0.4 mg DAILY PO Last administered on 05/25/19 09:03; Start 05/23/19 at 17:00 Zolpidem Tartrate (Ambien) 5 mg QHS PO Last administered on 05/24/19 20:21; Start 05/23/19 at 21:00 Hydrochlorothiazide (Microzide) 12.5 mg DAILY PO Last administered on 05/25/19 09:03; Start 05/23/19 at 17:00 Losartan Potassium (Cozaar) 100 mg DAILY PO Last administered on 05/25/19 09:03; Start 05/23/19 at 17:00 Atorvastatin Calcium (Lipitor) 5 mg QHS PO Last administered on 05/24/19 20:21; Start 05/23/19 at 21:00 Metformin HCl (Glucophage) 500 mg DAILY08 PO Last administered on 05/25/19 09:03; Start 05/23/19 at 17:00 Pantoprazole Sodium (Protonix) 40 mg DAILYAC PO Last administered on 05/25/19 09:03; Start 05/23/19 at 16:30 Famotidine (Pepcid) 20 mg BID PO Last administered on 05/25/19 09:03; Start 05/23/19 at 21:00 Meclizine HCl (Antivert) 12.5 mg PRN Q6HRS PRN PO DIZZINESS; Start 05/24/19 at 15:00 Meclizine HCl (Antivert) 25 mg 1X ONCE PO Last administered on 05/24/19at 10:04; Start 05/24/19 at 08:45; Stop 05/24/19 at 08:46; Status DC Active Scripts Active Reported Losartan Potassium 100 Mg Tablet 100 Mg PO DAILY Flomax (Tamsulosin Hcl) 0.4 Mg Cap.er.24h 0.4 Mg PO DAILY Hydrochlorothiazide Tablet (Hydrochlorothiazide) 12.5 Mg Tablet 12.5 Mg PO DAILY Metformin Hcl 500 Mg Tablet 500 Mg PO DAILY Lovastatin 20 Mg Tablet 1 Tab PO DAILY Amlodipine Besylate 10 Mg Tablet 10 Mg PO DAILY Omeprazole 20 Mg Tablet.dr 20 Mg PO DAILY Ambien (Zolpidem Tartrate) 5 Mg Tablet 1 Tab PO QHS Vitals/I & O Vital Sign - Last 24 Hours 05/24/19 05/24/19 05/24/19 05/24/19 11:00 15:00 19:30 20:15 Temp 97.9 98.1 98.6 97.9 98.1 98.6 Pulse 105 97 96 Resp 20 18 16 B/P (MAP) 156/102 (120) 131/84 (100) 120/81 (94) Pulse Ox 98 98 97 O2 Delivery Room Air Room Air Room Air Room Air 05/24/19 05/25/19 05/25/19 05/25/19 23:35 03:46 07:56 09:03 Temp 98.2 98.2 98.3 98.2 98.2 98.3 Pulse 92 91 96 96 Resp 16 16 16 B/P (MAP) 133/91 (105) 136/92 (107) 132/92 (105) 132/92 Pulse Ox 98 98 96 O2 Delivery Room Air Room Air Room Air 05/25/19 09:03 Pulse 96 B/P (MAP) 132/92 Intake and Output 05/24/19 05/24/19 05/25/19 14:59 22:59 06:59 Intake Total 650 ml 440 ml 300 ml Balance 650 ml 440 ml 300 ml SUMMER LARA MD May 25, 2019 10:19
[2019-05-25 11:59] VITALS: BP 123/86
--- NOTE | 2019-05-25 12:30 | PDOC ---
PROGRESS NOTES Assessment Problems Medical Problems: (1) Acute renal injury Status: Acute (2) Dizziness Status: Acute (3) ETOH abuse Status: Acute (4) Head injury Status: Acute (5) UTI (urinary tract infection) Status: Acute Concussion with loss of consciousness less than 30 minutes Dizziness better, no exam findings for central or peripheral vestibular dysfunction Alcoholism Plan Okay for discharge today Meclizine PRN, should not use more than 2 or 3 weeks Vestibular rehabilitation, outpatient Holding off on repeat brain imaging but he should have an MRI of the brain if he is no better in the next few weeks. Follow-up with me if no better in a few weeks. Abstain from alcohol Subjective Dizziness is much better, wants to go home Objective Vital Signs Date Time Temp Pulse Resp B/P (MAP) Pulse Ox O2 Delivery O2 Flow Rate FiO2 05/25/19 11:59 98.4 90 18 123/86 (98) 97 Room Air 98.4 Intake and Output 05/25/19 06:59 Intake Total 1390 ml Balance 1390 ml Intake Oral 1390 ml # Voids 6 PHYSICAL EXAM Alert. Oriented to time, place and person. PERRL. EOMI. CN: no focal findings. Muscle tone: normal. Muscle strength: 5/5 DTR: 2+ Plantar reflex: flexor Gait: little unsteady. Sensory exam: no abnormal findings. No cerebellar signs elicited. Review of Relevant I have reviewed the following items jose (where applicable) has been applied. Labs Laboratory Tests Test 05/24/19 03:55 05/25/19 03:25 White Blood Count 7.2 x10^3/uL (4.0-11.0) 6.3 x10^3/uL (4.0-11.0) Red Blood Count 5.12 x10^6/uL (4.30-5.70) 4.88 x10^6/uL (4.30-5.70) Hemoglobin 12.6 g/dL (13.0-17.5) 12.0 g/dL (13.0-17.5) Hematocrit 39.4 % (39.0-53.0) 37.7 % (39.0-53.0) Mean Corpuscular Volume 77 fL (79-100) 77 fL (79-100) Mean Corpuscular Hemoglobin 25 pg (25-35) 25 pg (25-35) Mean Corpuscular Hemoglobin Concent 32 g/dL (31-37) 32 g/dL (31-37) Red Cell Distribution Width 20.9 % (11.5-14.5) 20.7 % (11.5-14.5) Platelet Count 274 x10^3/uL (140-400) 260 x10^3/uL (140-400) Neutrophils (%) (Auto) 47 % (31-73) 52 % (31-73) Lymphocytes (%) (Auto) 35 % (24-48) 28 % (24-48) Monocytes (%) (Auto) 10 % (0-9) 11 % (0-9) Eosinophils (%) (Auto) 7 % (0-3) 9 % (0-3) Basophils (%) (Auto) 0 % (0-3) 1 % (0-3) Neutrophils # (Auto) 3.4 x10^3/uL (1.8-7.7) 3.3 x10^3/uL (1.8-7.7) Lymphocytes # (Auto) 2.5 x10^3/uL (1.0-4.8) 1.7 x10^3/uL (1.0-4.8) Monocytes # (Auto) 0.7 x10^3/uL (0.0-1.1) 0.7 x10^3/uL (0.0-1.1) Eosinophils # (Auto) 0.5 x10^3/uL (0.0-0.7) 0.5 x10^3/uL (0.0-0.7) Basophils # (Auto) 0.0 x10^3/uL (0.0-0.2) 0.0 x10^3/uL (0.0-0.2) Sodium Level 142 mmol/L (136-145) 140 mmol/L (136-145) Potassium Level 4.1 mmol/L (3.5-5.1) 4.0 mmol/L (3.5-5.1) Chloride Level 105 mmol/L (98-107) 105 mmol/L (98-107) Carbon Dioxide Level 22 mmol/L (21-32) 22 mmol/L (21-32) Anion Gap 15 (6-14) 13 (6-14) Blood Urea Nitrogen 17 mg/dL (8-26) 16 mg/dL (8-26) Creatinine 1.3 mg/dL (0.7-1.3) 1.2 mg/dL (0.7-1.3) Estimated GFR (Cockcroft-Gault) 67.7 74.2 BUN/Creatinine Ratio 13 (6-20) 13 (6-20) Glucose Level 97 mg/dL (70-99) 80 mg/dL (70-99) Calcium Level 9.4 mg/dL (8.5-10.1) 9.1 mg/dL (8.5-10.1) Total Bilirubin 0.5 mg/dL (0.2-1.0) 0.4 mg/dL (0.2-1.0) Aspartate Amino Transf (AST/SGOT) 13 U/L (15-37) 14 U/L (15-37) Alanine Aminotransferase (ALT/SGPT) 23 U/L (16-63) 21 U/L (16-63) Alkaline Phosphatase 64 U/L (46-116) 56 U/L (46-116) Total Protein 7.8 g/dL (6.4-8.2) 7.5 g/dL (6.4-8.2) Albumin 3.5 g/dL (3.4-5.0) 3.4 g/dL (3.4-5.0) Albumin/Globulin Ratio 0.8 (1.0-1.7) 0.8 (1.0-1.7) Laboratory Tests Test 05/25/19 03:25 White Blood Count 6.3 x10^3/uL (4.0-11.0) Red Blood Count 4.88 x10^6/uL (4.30-5.70) Hemoglobin 12.0 g/dL (13.0-17.5) Hematocrit 37.7 % (39.0-53.0) Mean Corpuscular Volume 77 fL (79-100) Mean Corpuscular Hemoglobin 25 pg (25-35) Mean Corpuscular Hemoglobin Concent 32 g/dL (31-37) Red Cell Distribution Width 20.7 % (11.5-14.5) Platelet Count 260 x10^3/uL (140-400) Neutrophils (%) (Auto) 52 % (31-73) Lymphocytes (%) (Auto) 28 % (24-48) Monocytes (%) (Auto) 11 % (0-9) Eosinophils (%) (Auto) 9 % (0-3) Basophils (%) (Auto) 1 % (0-3) Neutrophils # (Auto) 3.3 x10^3/uL (1.8-7.7) Lymphocytes # (Auto) 1.7 x10^3/uL (1.0-4.8) Monocytes # (Auto) 0.7 x10^3/uL (0.0-1.1) Eosinophils # (Auto) 0.5 x10^3/uL (0.0-0.7) Basophils # (Auto) 0.0 x10^3/uL (0.0-0.2) Sodium Level 140 mmol/L (136-145) Potassium Level 4.0 mmol/L (3.5-5.1) Chloride Level 105 mmol/L (98-107) Carbon Dioxide Level 22 mmol/L (21-32) Anion Gap 13 (6-14) Blood Urea Nitrogen 16 mg/dL (8-26) Creatinine 1.2 mg/dL (0.7-1.3) Estimated GFR (Cockcroft-Gault) 74.2 BUN/Creatinine Ratio 13 (6-20) Glucose Level 80 mg/dL (70-99) Calcium Level 9.1 mg/dL (8.5-10.1) Total Bilirubin 0.4 mg/dL (0.2-1.0) Aspartate Amino Transf (AST/SGOT) 14 U/L (15-37) Alanine Aminotransferase (ALT/SGPT) 21 U/L (16-63) Alkaline Phosphatase 56 U/L (46-116) Total Protein 7.5 g/dL (6.4-8.2) Albumin 3.4 g/dL (3.4-5.0) Albumin/Globulin Ratio 0.8 (1.0-1.7) Medications Current Medications Sodium Chloride 1,000 ml @ 1,000 mls/hr 1X ONCE IV Last administered on 05/22/19at 18:45; Start 05/22/19 at 18:30; Stop 05/22/19 at 19:29; Status DC Diphtheria/ Tetanus/Acell Pertussis (Boostrix) 0.5 ml ONCE ONCE VAX IM Last administered on 05/22/19at 20:53; Start 05/22/19 at 20:15; Stop 05/22/19 at 20:16; Status DC Ceftriaxone Sodium (Rocephin) 1 gm 1X ONCE IVP Last administered on 05/22/19at 20:15; Start 05/22/19 at 20:15; Stop 05/22/19 at 20:16; Status DC Acetaminophen (Tylenol) 650 mg 1X ONCE PO Last administered on 05/22/19at 20:48; Start 05/22/19 at 20:30; Stop 05/22/19 at 20:31; Status DC Ondansetron HCl (Zofran) 4 mg PRN Q8HRS PRN IV NAUSEA/VOMITING 1ST CHOICE; Start 05/22/19 at 21:15; Stop 05/23/19 at 21:14; Status DC Multivitamins 10 ml/Thiamine HCl 100 mg/Folic Acid 1 mg/Sodium Chloride 1,011.2 ml @ 100 mls/ hr DAILY IV Last administered on 05/25/19at 09:03; Start 05/23/19 at 16:15; Stop 05/27/19 at 19:07 Lorazepam (Ativan) 4 mg PRN Q1HR PRN PO For CIWA 8-14; Start 05/23/19 at 16:15 Lorazepam (Ativan) 8 mg PRN Q1HR PRN PO For CIWA 15 or greater; Start 05/23/19 at 16:15 Lorazepam (Ativan Inj) 2 mg PRN Q1HR PRN IV For CIWA 8-14; Start 05/23/19 at 16:15 Lorazepam (Ativan Inj) 4 mg PRN Q1HR PRN IV For CIWA 15 or greater; Start 05/23/19 at 16:15 Haloperidol Lactate (Haldol Inj) 5 mg PRN Q4HRS PRN IVP Hallucinatns,Confusn,Delirium; Start 05/23/19 at 16:15 Diphenhydramine HCl (Benadryl) 25 mg PRN Q15MIN PRN IVP EPS symptoms 2'Haldol admin; Start 05/23/19 at 16:15 Clonidine HCl (Catapres) 0.1 mg PRN Q1HR PRN PO SBP > 180 or DBP > 100, MRX3; Start 05/23/19 at 16:15 Amlodipine Besylate (Norvasc) 10 mg DAILY PO Last administered on 05/25/19 09:03; Start 05/23/19 at 17:00 Tamsulosin HCl (Flomax) 0.4 mg DAILY PO Last administered on 05/25/19 09:03; Start 05/23/19 at 17:00 Zolpidem Tartrate (Ambien) 5 mg QHS PO Last administered on 05/24/19 20:21; Start 05/23/19 at 21:00 Hydrochlorothiazide (Microzide) 12.5 mg DAILY PO Last administered on 05/25/19 09:03; Start 05/23/19 at 17:00 Losartan Potassium (Cozaar) 100 mg DAILY PO Last administered on 05/25/19 09:03; Start 05/23/19 at 17:00 Atorvastatin Calcium (Lipitor) 5 mg QHS PO Last administered on 05/24/19 20:21; Start 05/23/19 at 21:00 Metformin HCl (Glucophage) 500 mg DAILY08 PO Last administered on 05/25/19 09:03; Start 05/23/19 at 17:00 Pantoprazole Sodium (Protonix) 40 mg DAILYAC PO Last administered on 05/25/19 09:03; Start 05/23/19 at 16:30 Famotidine (Pepcid) 20 mg BID PO Last administered on 05/25/19 09:03; Start 05/23/19 at 21:00 Meclizine HCl (Antivert) 12.5 mg PRN Q6HRS PRN PO DIZZINESS; Start 05/24/19 at 15:00 Meclizine HCl (Antivert) 25 mg 1X ONCE PO Last administered on 05/24/19 10:04; Start 05/24/19 at 08:45; Stop 05/24/19 at 08:46; Status DC Active Scripts Active Reported Losartan Potassium 100 Mg Tablet 100 Mg PO DAILY Flomax (Tamsulosin Hcl) 0.4 Mg Cap.er.24h 0.4 Mg PO DAILY Hydrochlorothiazide Tablet (Hydrochlorothiazide) 12.5 Mg Tablet 12.5 Mg PO DAILY Metformin Hcl 500 Mg Tablet 500 Mg PO DAILY Lovastatin 20 Mg Tablet 1 Tab PO DAILY Amlodipine Besylate 10 Mg Tablet 10 Mg PO DAILY Omeprazole 20 Mg Tablet.dr 20 Mg PO DAILY Ambien (Zolpidem Tartrate) 5 Mg Tablet 1 Tab PO QHS Vitals/I & O Vital Sign - Last 24 Hours 05/24/19 05/24/19 05/24/19 05/24/19 15:00 19:30 20:15 23:35 Temp 98.1 98.6 98.2 98.1 98.6 98.2 Pulse 97 96 92 Resp 18 16 16 B/P (MAP) 131/84 (100) 120/81 (94) 133/91 (105) Pulse Ox 98 97 98 O2 Delivery Room Air Room Air Room Air Room Air 05/25/19 05/25/19 05/25/19 05/25/19 03:46 07:56 08:00 09:03 Temp 98.2 98.3 98.2 98.3 Pulse 91 96 96 Resp 16 16 B/P (MAP) 136/92 (107) 132/92 (105) 132/92 Pulse Ox 98 96 O2 Delivery Room Air Room Air Room Air 05/25/19 05/25/19 09:03 11:59 Temp 98.4 98.4 Pulse 96 90 Resp 18 B/P (MAP) 132/92 123/86 (98) Pulse Ox 97 O2 Delivery Room Air Intake and Output 05/24/19 05/24/19 05/25/19 14:59 22:59 06:59 Intake Total 650 ml 440 ml 300 ml Balance 650 ml 440 ml 300 ml TOMMY JUAN MD May 25, 2019 12:30
[2019-05-25 15:38] VITALS: BP 131/79
[2019-05-25 19:36] VITALS: BP 118/80
[2019-05-25] MEDS: ATORVASTATIN CALCIUM 10 MG TABLET. PO SCH (21:50)
[2019-05-25] MEDS: ZOLPIDEM 5 MG TABLET. PO SCH (21:50)
[2019-05-25 23:36] VITALS: BP 130/86
[2019-05-26 03:13] VITALS: BP 125/86
[2019-05-26 07:50] VITALS: BP 133/92
[2019-05-26] MEDS: TAMSULOSIN 0.4 MG CAP.ER.24H. PO SCH (09:10)
[2019-05-26] MEDS: LOSARTAN POTASSIUM 50 MG TABLET. PO SCH (09:11)
[2019-05-26] MEDS: metFORMIN 500 MG TABLET PO SCH (09:11)
[2019-05-26] MEDS: amLODIPine BESYLATE 10 MG TABLET PO SCH (09:11)
[2019-05-26] MEDS: FAMOTIDINE 20 MG TABLET. PO SCH (09:11)
[2019-05-26] MEDS: PANTOPRAZOLE 40 MG TABLET.DR. PO SCH (09:11)
[2019-05-26] MEDS: hydroCHLOROthiazide 12.5 MG CAPSULE PO SCH (09:11)
--- NOTE | 2019-05-26 09:12 | NUR ---
NAUN consulted for Inpatient ETOH tx and OP Vestibular PT. Pt seen by PAT team yesterday and plan is for pt to follow up with his insurance with approved providers for ETOH tx. NAUN faxed OP PT order to OP PT at [facility]. Awaiting to hear back. Discussed with RN and Physician. Addendum: 05/26/19 at 1118 by YAIMA MAGALLON NAUN following pt. Spoke with OP and they have a contract with pt's insurance. They will contact pt once scheduling is completed. Pt aware and agreeable. RN notified.
[2019-05-26] MEDS: MULTIVIT INFUSN,ADULT 4,VIT K 10 ML, THIAMINE INJ 100 MG, FOLIC ACID INJ 1 MG in IV NOR... IV SCH (09:13)
--- NOTE | 2019-05-26 10:29 | CARD ---
MR#: [id number] Date of Study: 05/26/2019 Ordering Physician: SUMMER LARA, Referring Physician: MAKENZIE GRUBER Tech: Alana Bennett RDCS APPROVED REPORT EXAM: Two-dimensional and M-mode echocardiogram with Doppler and color Doppler. Other Information Quality : Good INDICATION Syncope 2D DIMENSIONS RVDd2.5 (2.9-3.5cm)Left Atrium(2D)2.2 (1.6-4.0cm) IVSd1.5 (0.7-1.1cm)Aortic Root(2D)2.9 (2.0-3.7cm) LVDd3.9 (3.9-5.9cm)LVOT Diameter2.3 (1.8-2.4cm) PWd1.3 (0.7-1.1cm)LVDs2.8 (2.5-4.0cm) FS (%) 28.9 %SV37.4 ml LVEF(%)55.1 (>50%) Aortic Valve AoV Peak Chris.97.8cm/sAoV VTI13.5cm AO Peak GR.3.8mmHgLVOT Peak Chris.89.0cm/s LVOT VTI 14.36cmAO Mean GR.2mmHg LIZZIE (VMAX)3.60gx4JCM (VTI)4.34cm2 AI P 1/2 [id number] Mitral Valve MV E Ogdbtcel33.7cm/sMV DECEL [id number] MV A Giwdtbzx63.5cm/sMV [id number] E/A Ratio0.6MVA (PHT)3.76cm2 TDI E/Lateral E'7.5E/Medial E'10.2 Pulmonary Vein S1 Efdpwrqh46.2cm/sD2 Tpkzogia74.6cm/s LEFT VENTRICLE The left ventricle is normal size. There is mild concentric left ventricular hypertrophy. The left ve ntricular systolic function is normal. The Ejection Fraction is 55-60%. There is normal LV segmental wall motion. Transmitral Doppler flow pattern is Grade I-abnormal relaxation pattern. RIGHT VENTRICLE The right ventricle is normal size. The right ventricular systolic function is normal. ATRIA The left atrium size is normal. The right atrium size is normal. The interatrial septum is intact wit h no evidence for an atrial septal defect or patent foramen ovale as noted on 2-D or Doppler imaging. AORTIC VALVE The aortic valve is calcified but opens well. Doppler and Color Flow revealed mild aortic regurgitati on. There is no significant aortic valvular stenosis. MITRAL VALVE The mitral valve is calcified but opens well. There is no evidence of mitral valve prolapse. There is no mitral valve stenosis. Doppler and Color-flow revealed trace mitral regurgitation. TRICUSPID VALVE The tricuspid valve is normal in structure and function. Doppler and Color Flow revealed trace tricus pid regurgitation. There is no tricuspid valve stenosis. PULMONIC VALVE The pulmonary valve is normal in structure and function. Doppler and Color Flow revealed no pulmonic valvular regurgitation. There is no pulmonic valvular stenosis. GREAT VESSELS The aortic root is normal in size. The ascending aorta is normal in size. The IVC is normal in size a nd collapses >50% with inspiration. PERICARDIAL EFFUSION There is no evidence of significant pericardial effusion. Critical Notification Critical Value: No <Conclusion> The left ventricular systolic function is normal. The Ejection Fraction is 55-60%. There is normal LV segmental wall motion. Transmitral Doppler flow pattern is Grade I-abnormal relaxation pattern. Mild aortic regurgitation. Trace mitral regurgitation. Trace tricuspid regurgitation. There is no evidence of significant pericardial effusion. Signed by : Iker Lou, Electronically Approved : 05/26/2019 10:28:41
[2019-05-26 11:22] VITALS: BP 124/84
--- NOTE | 2019-05-26 11:53 | PDOC ---
PROGRESS NOTES History of Present Illness History of Present Illness VTE Prophylaxis Ordered VTE Prophylaxis Devices: Yes VTE Pharmacological Prophylaxi: Yes Assessment/Plan Assessment/Plan Impression: 1. alcohol abuse 2. No acute abnormality seen in the CT scan cervical spine. 3. Spondylotic changes and multilevel disc degenerative changes are noted. 4. fall with LOC 5. Head injury ////WITH POST CONCUSSION SYNDROME 6. acute renal failure, vasomotor nephropathy/ CKD ///BY CHART REVIEW, improved 7. tobacco abuse 8. microcytic anemia plan admit fall precautions alcohol withdrawal precautions banana bag, iv fluid support TELE Neurochecks q 4 hrs neurology consult scd's, dvt prophylaxis po pepsid gi prophylaxis frequent labs nephrology consult has signed off fe panel NEEDS ETOH REHAB D/W prefers inpatient rehab vestibular rehab prn ECHO TO EVAL EF fe po daily to call his insurance for treatment placement, remain off work for now, see PCP ROBER 27 MIN PT EXAM, CHART REVIEW, > 50% OF TIME SPENT WITH EXAM, CHART REVIEW, PT CARE COORDINATION Vitals Vitals Vital Signs Date Time Temp Pulse Resp B/P (MAP) Pulse Ox O2 Delivery O2 Flow Rate FiO2 05/26/19 11:22 98.1 87 16 124/84 (97) 96 Room Air 98.1 Physical Exam General: Alert, Oriented X3, Cooperative, No acute distress Heart: Regular rate, Normal S1, Normal S2 Lungs: Clear Abdomen: Normal bowel sounds, Soft, No tenderness Extremities: No cyanosis, No edema Skin: No significant lesion Assessment and Plan Assessmemt and Plan Problems Medical Problems: (1) Acute renal injury Status: Acute (2) Dizziness Status: Acute (3) ETOH abuse Status: Acute (4) Head injury Status: Acute (5) UTI (urinary tract infection) Status: Acute Comment Review of Relevant I have reviewed the following items jose (where applicable) has been applied. Labs Laboratory Tests Test 05/25/19 03:25 White Blood Count 6.3 x10^3/uL (4.0-11.0) Red Blood Count 4.88 x10^6/uL (4.30-5.70) Hemoglobin 12.0 g/dL (13.0-17.5) Hematocrit 37.7 % (39.0-53.0) Mean Corpuscular Volume 77 fL (79-100) Mean Corpuscular Hemoglobin 25 pg (25-35) Mean Corpuscular Hemoglobin Concent 32 g/dL (31-37) Red Cell Distribution Width 20.7 % (11.5-14.5) Platelet Count 260 x10^3/uL (140-400) Neutrophils (%) (Auto) 52 % (31-73) Lymphocytes (%) (Auto) 28 % (24-48) Monocytes (%) (Auto) 11 % (0-9) Eosinophils (%) (Auto) 9 % (0-3) Basophils (%) (Auto) 1 % (0-3) Neutrophils # (Auto) 3.3 x10^3/uL (1.8-7.7) Lymphocytes # (Auto) 1.7 x10^3/uL (1.0-4.8) Monocytes # (Auto) 0.7 x10^3/uL (0.0-1.1) Eosinophils # (Auto) 0.5 x10^3/uL (0.0-0.7) Basophils # (Auto) 0.0 x10^3/uL (0.0-0.2) Sodium Level 140 mmol/L (136-145) Potassium Level 4.0 mmol/L (3.5-5.1) Chloride Level 105 mmol/L (98-107) Carbon Dioxide Level 22 mmol/L (21-32) Anion Gap 13 (6-14) Blood Urea Nitrogen 16 mg/dL (8-26) Creatinine 1.2 mg/dL (0.7-1.3) Estimated GFR (Cockcroft-Gault) 74.2 BUN/Creatinine Ratio 13 (6-20) Glucose Level 80 mg/dL (70-99) Calcium Level 9.1 mg/dL (8.5-10.1) Iron Level 39 ug/dL (65-175) Total Iron Binding Capacity 460 ug/dL (250-450) Iron Saturation 8 % (15-34) Total Bilirubin 0.4 mg/dL (0.2-1.0) Aspartate Amino Transf (AST/SGOT) 14 U/L (15-37) Alanine Aminotransferase (ALT/SGPT) 21 U/L (16-63) Alkaline Phosphatase 56 U/L (46-116) Total Protein 7.5 g/dL (6.4-8.2) Albumin 3.4 g/dL (3.4-5.0) Albumin/Globulin Ratio 0.8 (1.0-1.7) Microbiology 05/22/19 Urine Culture - Final, Complete 05/22/19 Urine Culture Result 1 (JIMI) - Final, Complete Medications Current Medications Sodium Chloride 1,000 ml @ 1,000 mls/hr 1X ONCE IV Last administered on 05/22/19at 18:45; Start 05/22/19 at 18:30; Stop 05/22/19 at 19:29; Status DC Diphtheria/ Tetanus/Acell Pertussis (Boostrix) 0.5 ml ONCE ONCE VAX IM Last administered on 05/22/19at 20:53; Start 05/22/19 at 20:15; Stop 05/22/19 at 20:16; Status DC Ceftriaxone Sodium (Rocephin) 1 gm 1X ONCE IVP Last administered on 05/22/19at 20:15; Start 05/22/19 at 20:15; Stop 05/22/19 at 20:16; Status DC Acetaminophen (Tylenol) 650 mg 1X ONCE PO Last administered on 05/22/19at 20:48; Start 05/22/19 at 20:30; Stop 05/22/19 at 20:31; Status DC Ondansetron HCl (Zofran) 4 mg PRN Q8HRS PRN IV NAUSEA/VOMITING 1ST CHOICE; Start 05/22/19 at 21:15; Stop 05/23/19 at 21:14; Status DC Multivitamins 10 ml/Thiamine HCl 100 mg/Folic Acid 1 mg/Sodium Chloride 1,011.2 ml @ 100 mls/ hr DAILY IV Last administered on 05/26/19at 09:13; Start 05/23/19 at 16:15; Stop 05/27/19 at 19:07 Lorazepam (Ativan) 4 mg PRN Q1HR PRN PO For CIWA 8-14; Start 05/23/19 at 16:15 Lorazepam (Ativan) 8 mg PRN Q1HR PRN PO For CIWA 15 or greater; Start 05/23/19 at 16:15 Lorazepam (Ativan Inj) 2 mg PRN Q1HR PRN IV For CIWA 8-14; Start 05/23/19 at 16:15 Lorazepam (Ativan Inj) 4 mg PRN Q1HR PRN IV For CIWA 15 or greater; Start 05/23/19 at 16:15 Haloperidol Lactate (Haldol Inj) 5 mg PRN Q4HRS PRN IVP Hallucinatns,Confusn,Delirium; Start 05/23/19 at 16:15 Diphenhydramine HCl (Benadryl) 25 mg PRN Q15MIN PRN IVP EPS symptoms 2'Haldol admin; Start 05/23/19 at 16:15 Clonidine HCl (Catapres) 0.1 mg PRN Q1HR PRN PO SBP > 180 or DBP > 100, MRX3; Start 05/23/19 at 16:15 Amlodipine Besylate (Norvasc) 10 mg DAILY PO Last administered on 05/26/19 09:13; Start 05/23/19 at 17:00 Tamsulosin HCl (Flomax) 0.4 mg DAILY PO Last administered on 05/26/19 09:13; Start 05/23/19 at 17:00 Zolpidem Tartrate (Ambien) 5 mg QHS PO Last administered on 05/25/19 21:50; Start 05/23/19 at 21:00 Hydrochlorothiazide (Microzide) 12.5 mg DAILY PO Last administered on 05/26/19 09:13; Start 05/23/19 at 17:00 Losartan Potassium (Cozaar) 100 mg DAILY PO Last administered on 05/26/19 09:13; Start 05/23/19 at 17:00 Atorvastatin Calcium (Lipitor) 5 mg QHS PO Last administered on 05/25/19 21:50; Start 05/23/19 at 21:00 Metformin HCl (Glucophage) 500 mg DAILY08 PO Last administered on 05/26/19 09:13; Start 05/23/19 at 17:00 Pantoprazole Sodium (Protonix) 40 mg DAILYAC PO Last administered on 05/26/19 09:13; Start 05/23/19 at 16:30 Famotidine (Pepcid) 20 mg BID PO Last administered on 05/26/19 09:13; Start 05/23/19 at 21:00 Meclizine HCl (Antivert) 12.5 mg PRN Q6HRS PRN PO DIZZINESS; Start 05/24/19 at 15:00 Meclizine HCl (Antivert) 25 mg 1X ONCE PO Last administered on 05/24/19at 10:04; Start 05/24/19 at 08:45; Stop 05/24/19 at 08:46; Status DC Active Scripts Active Reported Losartan Potassium 100 Mg Tablet 100 Mg PO DAILY Flomax (Tamsulosin Hcl) 0.4 Mg Cap.er.24h 0.4 Mg PO DAILY Hydrochlorothiazide Tablet (Hydrochlorothiazide) 12.5 Mg Tablet 12.5 Mg PO DAILY Metformin Hcl 500 Mg Tablet 500 Mg PO DAILY Lovastatin 20 Mg Tablet 1 Tab PO DAILY Amlodipine Besylate 10 Mg Tablet 10 Mg PO DAILY Omeprazole 20 Mg Tablet.dr 20 Mg PO DAILY Ambien (Zolpidem Tartrate) 5 Mg Tablet 1 Tab PO QHS Vitals/I & O Vital Sign - Last 24 Hours 05/25/19 05/25/19 05/25/19 05/25/19 11:59 15:38 19:36 20:00 Temp 98.4 98.0 98.1 98.4 98.0 98.1 Pulse 90 100 101 Resp 18 16 16 B/P (MAP) 123/86 (98) 131/79 (96) 118/80 (93) Pulse Ox 97 97 98 O2 Delivery Room Air Room Air Room Air Room Air 05/25/19 05/26/19 05/26/19 05/26/19 23:36 03:13 07:50 08:00 Temp 97.8 98.5 98.5 97.8 98.5 98.5 Pulse 83 80 84 Resp 16 16 16 B/P (MAP) 130/86 (101) 125/86 (99) 133/92 (106) Pulse Ox 96 95 97 O2 Delivery Room Air Room Air Room Air Room Air 05/26/19 05/26/19 05/26/19 09:13 09:13 11:22 Temp 98.1 98.1 Pulse 84 84 87 Resp 16 B/P (MAP) 133/92 133/92 124/84 (97) Pulse Ox 96 O2 Delivery Room Air Intake and Output 05/25/19 05/25/19 05/26/19 15:00 23:00 07:00 Intake Total 600 ml Balance 600 ml SUMMER LARA MD May 26, 2019 11:53
--- NOTE | 2019-05-26 12:29 | PDOC ---
PROGRESS NOTES Assessment Problems Medical Problems: (1) Acute renal injury Status: Acute (2) Dizziness Status: Acute (3) ETOH abuse Status: Acute (4) Head injury Status: Acute (5) UTI (urinary tract infection) Status: Acute Concussion with loss of consciousness less than 30 minutes Dizziness better, no exam findings for central or peripheral vestibular dysfunction Alcoholism Plan Okay for discharge Note renal has signed off Meclizine PRN, should not use more than 2 or 3 weeks Vestibular rehabilitation, outpatient Holding off on repeat brain imaging but he should have an MRI of the brain if he is no better in the next few weeks. Follow-up with me if no better in a few weeks. Abstain from alcohol Subjective no dizziness or headache Objective Vital Signs Date Time Temp Pulse Resp B/P (MAP) Pulse Ox O2 Delivery O2 Flow Rate FiO2 05/26/19 11:22 98.1 87 16 124/84 (97) 96 Room Air 98.1 Intake and Output 05/26/19 07:00 Intake Total 600 ml Balance 600 ml Intake Oral 600 ml # Voids 4 PHYSICAL EXAM Alert. Oriented to time, place and person. PERRL. EOMI. CN: no focal findings. Muscle tone: normal. Muscle strength: 5/5 DTR: 2+ Plantar reflex: flexor Gait: not tested. Sensory exam: no abnormal findings. No cerebellar signs elicited. Review of Relevant I have reviewed the following items jose (where applicable) has been applied. Labs Laboratory Tests Test 05/25/19 03:25 White Blood Count 6.3 x10^3/uL (4.0-11.0) Red Blood Count 4.88 x10^6/uL (4.30-5.70) Hemoglobin 12.0 g/dL (13.0-17.5) Hematocrit 37.7 % (39.0-53.0) Mean Corpuscular Volume 77 fL (79-100) Mean Corpuscular Hemoglobin 25 pg (25-35) Mean Corpuscular Hemoglobin Concent 32 g/dL (31-37) Red Cell Distribution Width 20.7 % (11.5-14.5) Platelet Count 260 x10^3/uL (140-400) Neutrophils (%) (Auto) 52 % (31-73) Lymphocytes (%) (Auto) 28 % (24-48) Monocytes (%) (Auto) 11 % (0-9) Eosinophils (%) (Auto) 9 % (0-3) Basophils (%) (Auto) 1 % (0-3) Neutrophils # (Auto) 3.3 x10^3/uL (1.8-7.7) Lymphocytes # (Auto) 1.7 x10^3/uL (1.0-4.8) Monocytes # (Auto) 0.7 x10^3/uL (0.0-1.1) Eosinophils # (Auto) 0.5 x10^3/uL (0.0-0.7) Basophils # (Auto) 0.0 x10^3/uL (0.0-0.2) Sodium Level 140 mmol/L (136-145) Potassium Level 4.0 mmol/L (3.5-5.1) Chloride Level 105 mmol/L (98-107) Carbon Dioxide Level 22 mmol/L (21-32) Anion Gap 13 (6-14) Blood Urea Nitrogen 16 mg/dL (8-26) Creatinine 1.2 mg/dL (0.7-1.3) Estimated GFR (Cockcroft-Gault) 74.2 BUN/Creatinine Ratio 13 (6-20) Glucose Level 80 mg/dL (70-99) Calcium Level 9.1 mg/dL (8.5-10.1) Iron Level 39 ug/dL (65-175) Total Iron Binding Capacity 460 ug/dL (250-450) Iron Saturation 8 % (15-34) Total Bilirubin 0.4 mg/dL (0.2-1.0) Aspartate Amino Transf (AST/SGOT) 14 U/L (15-37) Alanine Aminotransferase (ALT/SGPT) 21 U/L (16-63) Alkaline Phosphatase 56 U/L (46-116) Total Protein 7.5 g/dL (6.4-8.2) Albumin 3.4 g/dL (3.4-5.0) Albumin/Globulin Ratio 0.8 (1.0-1.7) Microbiology 05/22/19 Urine Culture - Final, Complete 05/22/19 Urine Culture Result 1 (JIMI) - Final, Complete Medications Current Medications Sodium Chloride 1,000 ml @ 1,000 mls/hr 1X ONCE IV Last administered on 05/22/19at 18:45; Start 05/22/19 at 18:30; Stop 05/22/19 at 19:29; Status DC Diphtheria/ Tetanus/Acell Pertussis (Boostrix) 0.5 ml ONCE ONCE VAX IM Last administered on 05/22/19at 20:53; Start 05/22/19 at 20:15; Stop 05/22/19 at 20:16; Status DC Ceftriaxone Sodium (Rocephin) 1 gm 1X ONCE IVP Last administered on 05/22/19at 20:15; Start 05/22/19 at 20:15; Stop 05/22/19 at 20:16; Status DC Acetaminophen (Tylenol) 650 mg 1X ONCE PO Last administered on 05/22/19at 20:48; Start 05/22/19 at 20:30; Stop 05/22/19 at 20:31; Status DC Ondansetron HCl (Zofran) 4 mg PRN Q8HRS PRN IV NAUSEA/VOMITING 1ST CHOICE; Start 05/22/19 at 21:15; Stop 05/23/19 at 21:14; Status DC Multivitamins 10 ml/Thiamine HCl 100 mg/Folic Acid 1 mg/Sodium Chloride 1,011.2 ml @ 100 mls/ hr DAILY IV Last administered on 05/26/19at 09:13; Start 05/23/19 at 16:15; Stop 05/27/19 at 19:07 Lorazepam (Ativan) 4 mg PRN Q1HR PRN PO For CIWA 8-14; Start 05/23/19 at 16:15 Lorazepam (Ativan) 8 mg PRN Q1HR PRN PO For CIWA 15 or greater; Start 05/23/19 at 16:15 Lorazepam (Ativan Inj) 2 mg PRN Q1HR PRN IV For CIWA 8-14; Start 05/23/19 at 16:15 Lorazepam (Ativan Inj) 4 mg PRN Q1HR PRN IV For CIWA 15 or greater; Start 05/23/19 at 16:15 Haloperidol Lactate (Haldol Inj) 5 mg PRN Q4HRS PRN IVP Hallucin atns,Confusn,Delirium; Start 05/23/19 at 16:15 Diphenhydramine HCl (Benadryl) 25 mg PRN Q15MIN PRN IVP EPS symptoms 2'Haldol admin; Start 05/23/19 at 16:15 Clonidine HCl (Catapres) 0.1 mg PRN Q1HR PRN PO SBP > 180 or DBP > 100, MRX3; Start 05/23/19 at 16:15 Amlodipine Besylate (Norvasc) 10 mg DAILY PO Last administered on 05/26/19 09:13; Start 05/23/19 at 17:00 Tamsulosin HCl (Flomax) 0.4 mg DAILY PO Last administered on 05/26/19 09:13; Start 05/23/19 at 17:00 Zolpidem Tartrate (Ambien) 5 mg QHS PO Last administered on 05/25/19 21:50; Start 05/23/19 at 21:00 Hydrochlorothiazide (Microzide) 12.5 mg DAILY PO Last administered on 05/26/19 09:13; Start 05/23/19 at 17:00 Losartan Potassium (Cozaar) 100 mg DAILY PO Last administered on 05/26/19 09:13; Start 05/23/19 at 17:00 Atorvastatin Calcium (Lipitor) 5 mg QHS PO Last administered on 05/25/19 21:50; Start 05/23/19 at 21:00 Metformin HCl (Glucophage) 500 mg DAILY08 PO Last administered on 05/26/19 09:13; Start 05/23/19 at 17:00 Pantoprazole Sodium (Protonix) 40 mg DAILYAC PO Last administered on 05/26/19 09:13; Start 05/23/19 at 16:30 Famotidine (Pepcid) 20 mg BID PO Last administered on 05/26/19 09:13; Start 05/23/19 at 21:00 Meclizine HCl (Antivert) 12.5 mg PRN Q6HRS PRN PO DIZZINESS; Start 05/24/19 at 15:00 Meclizine HCl (Antivert) 25 mg 1X ONCE PO Last administered on 05/24/19 10:04; Start 05/24/19 at 08:45; Stop 05/24/19 at 08:46; Status DC Active Scripts Active Reported Losartan Potassium 100 Mg Tablet 100 Mg PO DAILY Flomax (Tamsulosin Hcl) 0.4 Mg Cap.er.24h 0.4 Mg PO DAILY Hydrochlorothiazide Tablet (Hydrochlorothiazide) 12.5 Mg Tablet 12.5 Mg PO DAILY Metformin Hcl 500 Mg Tablet 500 Mg PO DAILY Lovastatin 20 Mg Tablet 1 Tab PO DAILY Amlodipine Besylate 10 Mg Tablet 10 Mg PO DAILY Omeprazole 20 Mg Tablet.dr 20 Mg PO DAILY Ambien (Zolpidem Tartrate) 5 Mg Tablet 1 Tab PO QHS Vitals/I & O Vital Sign - Last 24 Hours 05/25/19 05/25/19 05/25/19 05/25/19 15:38 19:36 20:00 23:36 Temp 98.0 98.1 97.8 98.0 98.1 97.8 Pulse 100 101 83 Resp 16 16 16 B/P (MAP) 131/79 (96) 118/80 (93) 130/86 (101) Pulse Ox 97 98 96 O2 Delivery Room Air Room Air Room Air Room Air 05/26/19 05/26/19 05/26/19 05/26/19 03:13 07:50 08:00 09:13 Temp 98.5 98.5 98.5 98.5 Pulse 80 84 84 Resp 16 16 B/P (MAP) 125/86 (99) 133/92 (106) 133/92 Pulse Ox 95 97 O2 Delivery Room Air Room Air Room Air 05/26/19 05/26/19 09:13 11:22 Temp 98.1 98.1 Pulse 84 87 Resp 16 B/P (MAP) 133/92 124/84 (97) Pulse Ox 96 O2 Delivery Room Air Intake and Output 05/25/19 05/25/19 05/26/19 15:00 23:00 07:00 Intake Total 600 ml Balance 600 ml TOMMY JUAN MD May 26, 2019 12:29
--- NOTE | 2019-05-26 13:19 | PDOC3 ---
Discharge Summary Date of Admission: May 23, 2019 Date of Discharge: May 26, 2019 Follow-Up: 3-5 days Admitting Diagnosis comment: Assessment/Plan Assessment/Plan Impression: 1. alcohol abuse 2. No acute abnormality seen in the CT scan cervical spine. 3. Spondylotic changes and multilevel disc degenerative changes are noted. 4. fall with LOC 5. Head injury ////WITH POST CONCUSSION SYNDROME 6. acute renal failure, vasomotor nephropathy/ CKD ///BY CHART REVIEW, improved 7. tobacco abuse 8. microcytic anemia plan admit fall precautions alcohol withdrawal precautions banana bag, iv fluid support D/C TELE Neurochecks q 4 hrs OK neurology consult OK WITH D/C TODAY scd's, dvt prophylaxis po pepsid gi prophylaxis frequent labs nephrology consult has signed off fe panel NEEDS ETOH REHAB D/W prefers inpatient rehab vestibular rehab prn ECHO TO EVAL EF fe po daily to call his insurance for treatment placement, remain off work for now, see PCP ROBER 33 MIN PT EXAM, CHART REVIEW, D/C PLANNING > 50% OF TIME SPENT WITH EXAM, CHART REVIEW, PT CARE COORDINATION Vitals Vitals Vital Signs Date Time Temp Pulse Resp B/P (MAP) Pulse Ox O2 Delivery O2 Flow Rate FiO2 05/26/19 11:22 98.1 87 16 124/84 (97) 96 Room Air 98.1 Physical Exam General: Alert, Oriented X3, Cooperative, No acute distress Heart: Regular rate, Normal S1, Normal S2 Lungs: Clear Abdomen: Normal bowel sounds, Soft, No tenderness Extremities: No cyanosis, No edema Skin: No significant lesion FINAL DIAGNOSIS Problems Medical Problems: (1) Acute renal injury Status: Acute (2) Dizziness Status: Acute (3) ETOH abuse Status: Acute (4) Head injury Status: Acute (5) UTI (urinary tract infection) Status: Acute Brief Hospital Course Mr. Nick is a 64 old [sex] who presented with [FALL, CONCUSSION, ETOH ABUSE ] CONDITION AT DISCHARGE: Improved Discharge Medications Current Medications Sodium Chloride 1,000 ml @ 1,000 mls/hr 1X ONCE IV Last administered on 05/22/19at 18:45; Start 05/22/19 at 18:30; Stop 05/22/19 at 19:29; Status DC Diphtheria/ Tetanus/Acell Pertussis (Boostrix) 0.5 ml ONCE ONCE VAX IM Last administered on 05/22/19at 20:53; Start 05/22/19 at 20:15; Stop 05/22/19 at 20:16; Status DC Ceftriaxone Sodium (Rocephin) 1 gm 1X ONCE IVP Last administered on 05/22/19at 20:15; Start 05/22/19 at 20:15; Stop 05/22/19 at 20:16; Status DC Acetaminophen (Tylenol) 650 mg 1X ONCE PO Last administered on 05/22/19at 20:48; Start 05/22/19 at 20:30; Stop 05/22/19 at 20:31; Status DC Ondansetron HCl (Zofran) 4 mg PRN Q8HRS PRN IV NAUSEA/VOMITING 1ST CHOICE; Start 05/22/19 at 21:15; Stop 05/23/19 at 21:14; Status DC Multivitamins 10 ml/Thiamine HCl 100 mg/Folic Acid 1 mg/Sodium Chloride 1,011.2 ml @ 100 mls/ hr DAILY IV Last administered on 05/26/19at 09:13; Start 05/23/19 at 16:15; Stop 05/27/19 at 19:07 Lorazepam (Ativan) 4 mg PRN Q1HR PRN PO For CIWA 8-14; Start 05/23/19 at 16:15 Lorazepam (Ativan) 8 mg PRN Q1HR PRN PO For CIWA 15 or greater; Start 05/23/19 at 16:15 Lorazepam (Ativan Inj) 2 mg PRN Q1HR PRN IV For CIWA 8-14; Start 05/23/19 at 16:15 Lorazepam (Ativan Inj) 4 mg PRN Q1HR PRN IV For CIWA 15 or greater; Start 05/23/19 at 16:15 Haloperidol Lactate (Haldol Inj) 5 mg PRN Q4HRS PRN IVP Hallucinatns,Confusn,Delirium; Start 05/23/19 at 16:15 Diphenhydramine HCl (Benadryl) 25 mg PRN Q15MIN PRN IVP EPS symptoms 2'Haldol admin; Start 05/23/19 at 16:15 Clonidine HCl (Catapres) 0.1 mg PRN Q1HR PRN PO SBP > 180 or DBP > 100, MRX3; Start 05/23/19 at 16:15 Amlodipine Besylate (Norvasc) 10 mg DAILY PO Last administered on 05/26/19 09:13; Start 05/23/19 at 17:00 Tamsulosin HCl (Flomax) 0.4 mg DAILY PO Last administered on 05/26/19 09:13; Start 05/23/19 at 17:00 Zolpidem Tartrate (Ambien) 5 mg QHS PO Last administered on 05/25/19 21:50; Start 05/23/19 at 21:00 Hydrochlorothiazide (Microzide) 12.5 mg DAILY PO Last administered on 05/26/19 09:13; Start 05/23/19 at 17:00 Losartan Potassium (Cozaar) 100 mg DAILY PO Last administered on 05/26/19 09:13; Start 05/23/19 at 17:00 Atorvastatin Calcium (Lipitor) 5 mg QHS PO Last administered on 05/25/19 21:50; Start 05/23/19 at 21:00 Metformin HCl (Glucophage) 500 mg DAILY08 PO Last administered on 05/26/19 09:13; Start 05/23/19 at 17:00 Pantoprazole Sodium (Protonix) 40 mg DAILYAC PO Last administered on 05/26/19 09:13; Start 05/23/19 at 16:30 Famotidine (Pepcid) 20 mg BID PO Last administered on 05/26/19 09:13; Start 05/23/19 at 21:00 Meclizine HCl (Antivert) 12.5 mg PRN Q6HRS PRN PO DIZZINESS; Start 05/24/19 at 15:00 Meclizine HCl (Antivert) 25 mg 1X ONCE PO Last administered on 05/24/19 10:04; Start 05/24/19 at 08:45; Stop 05/24/19 at 08:46; Status DC Active Scripts Active Reported Losartan Potassium 100 Mg Tablet 100 Mg PO DAILY Flomax (Tamsulosin Hcl) 0.4 Mg Cap.er.24h 0.4 Mg PO DAILY Hydrochlorothiazide Tablet (Hydrochlorothiazide) 12.5 Mg Tablet 12.5 Mg PO DAILY Metformin Hcl 500 Mg Tablet 500 Mg PO DAILY Lovastatin 20 Mg Tablet 1 Tab PO DAILY Amlodipine Besylate 10 Mg Tablet 10 Mg PO DAILY Omeprazole 20 Mg Tablet. 20 Mg PO DAILY Ambien (Zolpidem Tartrate) 5 Mg Tablet 1 Tab PO QHS Vital Signs Vital Signs Date Time Temp Pulse Resp B/P (MAP) Pulse Ox O2 Delivery O2 Flow Rate FiO2 05/26/19 11:22 98.1 87 16 124/84 (97) 96 Room Air 98.1 Labs Laboratory Tests Test 05/25/19 03:25 White Blood Count 6.3 x10^3/uL (4.0-11.0) Red Blood Count 4.88 x10^6/uL (4.30-5.70) Hemoglobin 12.0 g/dL (13.0-17.5) Hematocrit 37.7 % (39.0-53.0) Mean Corpuscular Volume 77 fL (79-100) Mean Corpuscular Hemoglobin 25 pg (25-35) Mean Corpuscular Hemoglobin Concent 32 g/dL (31-37) Red Cell Distribution Width 20.7 % (11.5-14.5) Platelet Count 260 x10^3/uL (140-400) Neutrophils (%) (Auto) 52 % (31-73) Lymphocytes (%) (Auto) 28 % (24-48) Monocytes (%) (Auto) 11 % (0-9) Eosinophils (%) (Auto) 9 % (0-3) Basophils (%) (Auto) 1 % (0-3) Neutrophils # (Auto) 3.3 x10^3/uL (1.8-7.7) Lymphocytes # (Auto) 1.7 x10^3/uL (1.0-4.8) Monocytes # (Auto) 0.7 x10^3/uL (0.0-1.1) Eosinophils # (Auto) 0.5 x10^3/uL (0.0-0.7) Basophils # (Auto) 0.0 x10^3/uL (0.0-0.2) Sodium Level 140 mmol/L (136-145) Potassium Level 4.0 mmol/L (3.5-5.1) Chloride Level 105 mmol/L (98-107) Carbon Dioxide Level 22 mmol/L (21-32) Anion Gap 13 (6-14) Blood Urea Nitrogen 16 mg/dL (8-26) Creatinine 1.2 mg/dL (0.7-1.3) Estimated GFR (Cockcroft-Gault) 74.2 BUN/Creatinine Ratio 13 (6-20) Glucose Level 80 mg/dL (70-99) Calcium Level 9.1 mg/dL (8.5-10.1) Iron Level 39 ug/dL (65-175) Total Iron Binding Capacity 460 ug/dL (250-450) Iron Saturation 8 % (15-34) Total Bilirubin 0.4 mg/dL (0.2-1.0) Aspartate Amino Transf (AST/SGOT) 14 U/L (15-37) Alanine Aminotransferase (ALT/SGPT) 21 U/L (16-63) Alkaline Phosphatase 56 U/L (46-116) Total Protein 7.5 g/dL (6.4-8.2) Albumin 3.4 g/dL (3.4-5.0) Albumin/Globulin Ratio 0.8 (1.0-1.7) Allergies Allergies Coded Allergies Type Severity Reaction Last Updated Verified No Known Allergies Allergy Unknown 04/03/16 Yes Disposition/Orders: D/C to Home Patient Instructions D/C PLANNING 33 MIN SUMMER LARA MD May 26, 2019 13:19
[2019-05-26] MEDS ORDERED: IRON150C11 PO (13:22)
[2019-05-26] MEDS ORDERED: MECL12.52 PO (13:22)
--- NOTE | 2019-05-26 13:23 | DISCH ---
DISCHARGE INSTRUCTIONS Condition on Discharge Condition on Discharge: Stable Activity After Discharge Activity Instructions for Disc: Activity as tolerated Lifting Instructions after Dis: No heavy lifting, No pulling or pushing Exercise Instruction after Dis: Progress as tolerated Driving Instructions after Dis: Do not drive, Do not drive today Weight Bearing Status after Di: As tolerated Diet after Discharge Diet after Discharge: Cardiac Liquid Texture: Thin Liquid Checks after Discharge Checks after discharge: Check blood press - daily Contacting the DR. after DC Call your doctor for: If your condition worsens Treatment/Equipment after DC Adaptive Equipment Issued: None Warfarin Follow-Up Warfarin Follow UP: ATTEND AA DAILY SUMMER LARA MD May 26, 2019 13:23
[2019-05-26] MEDS ORDERED: IRON POLYSACCHARIDE COMPLEX 150 MG CAPSULE PO SCH (13:30)
[2019-05-26 15:00] VITALS: BP 120/88
--- NOTE | 2019-05-26 15:05 | NUR ---
Pt reports that a referral was needed for him to get treatment at [facility] in [place]. I called and spoke to Hafsa at facility. No referral needed. In fact, the pt and can call [facility] and go straight there for evaluation after he leaves the here. I explained all of that to them with the discharge instructions. They both verbalized understanding.
--- NOTE | 2019-05-26 15:10 | NUR ---
Pt discharged to home with . She plans to get him a change of clothes and take him to [facility] for eval. They both are aware that he will be tested when he gets there and if he is positive for alcohol or drugs, he will not be able to get rehab.
== END 2019-05-26 15:10 | disposition home or self-care (01) | DRG 689 ==
LOC: ER 17:15 → 6 SOUTH 20:15
PROVIDERS: ADMIT Internal Medicine; ATTEND Internal Medicine
DX: N39.0 Urinary tract infection, site not specified (principal); N17.0 Acute kidney failure with tubular necrosis; S06.0X9A Concussion with loss of consciousness of unspecified duration, initial encounter; F10.10 Alcohol abuse, uncomplicated; N18.9 Chronic kidney disease, unspecified; I12.9 Hypertensive chronic kidney disease with stage 1 through stage 4 chronic kidney disease, or unspecified chronic kidney disease; K21.9 Gastro-esophageal reflux disease without esophagitis; D50.9 Iron deficiency anemia, unspecified; F17.210 Nicotine dependence, cigarettes, uncomplicated; W18.39XA Other fall on same level, initial encounter; W22.09XA Striking against other stationary object, initial encounter; E78.00 Pure hypercholesterolemia, unspecified; E78.5 Hyperlipidemia, unspecified; M19.90 Unspecified osteoarthritis, unspecified site; Z83.3 Family history of diabetes mellitus; Z85.038 Personal history of other malignant neoplasm of large intestine; Y93.89 Activity, other specified; Y92.89 Other specified places as the place of occurrence of the external cause; Y99.8 Other external cause status; Z82.49 Family history of ischemic heart disease and other diseases of the circulatory system; Z81.1 Family history of alcohol abuse and dependence
CPT/HCPCS: 36415; 70450; 72125; 80053; 80307; 81001; 83540; 83550; 83735; 84484; 85025; 87086; 90471; 90715; 93005; 93306; 96361; 96374; G0480; J0696; J7030; J8597; 97110; 99285-25; G0378

== ENCOUNTER 2020-05-09 19:03 | Emergency (ER) | payer OTHER ==
[~2020-05-09] VITALS: Ht 172.7 cm; Wt 82.7 kg
[~2020-05-09 19:03] MED LIST changes: +HYDR12.58 PO; +IRON150C11 PO; +LOSA100T14 PO; +LOSA1TAB19 PO; +LOVA20TA2 PO; +MECL12.573 PO; +METF500T16 PO; +TAMS0.4C97 PO
--- NOTE | 2020-05-09 20:28 | PHYS DOC ---
Past Medical History Past Medical History: Diabetes-Type II, GERD, High Cholesterol, Hypertension Past Surgical History: Other Additional Past Surgical Histo: hernia repair, rt arm sx Smoking Status: Former Smoker Alcohol Use: Heavy Drug Use: None General Adult EDM: Chief Complaint: LOWER EXT PAIN HPI: HPI: Patient is a 65 year old male presents with report of right lateral ankle pain after mechanical trip and fall on a piece of wood. Patient reports she is currently working on his garage. Reports occurred at approximately 1830 this evening. Denies other injury. Denies numbness or tingling. Reports some swelling to lateral ankle. Reports pain worse with walking. Denies taking any medication prior to arrival. Review of Systems: Review of Systems: Constitutional: Denies fever or chills : Denies dysuria or hematuria Musculoskeletal: Denies back pain; reports right ankle pain Integument: Denies rash; reports swelling to right ankle Neurologic: Denies headache, focal weakness or sensory changes Complete systems were reviewed and found to be within normal limits, except as documented in this note. Allergies: Allergies: Allergies Coded Allergies Type Severity Reaction Last Updated Verified No Known Allergies Allergy Unknown 04/03/16 Yes Physical Exam: PE: Constitutional: Well developed, well nourished, no acute distress, non-toxic appearance HENT: Normocephalic, atraumatic Eyes: Conjunctiva normal, no discharge Neck: Normal range of motion, supple Cardiovascular: Right PT and DP +2, cap refill less than 2 seconds Lungs & Thorax: No respiratory distress, equal chest rise and fall Skin: Warm, dry, no erythema, mild swelling to right lateral ankle Extremities: Right lateral ankle tenderness, anterior drawer negative Neurologic: Alert and oriented X 3, no focal deficits noted Psychologic: Affect normal, judgment normal EKG: EKG: [] Radiology/Procedures: Radiology/Procedures: PROCEDURE: ANKLE RIGHT 3V 3 views right ankle AP lateral oblique views HISTORY: Pain The visualized osseous structures appear The tibiotalar relationship is normal. There is soft tissue swelling over the lateral malleolus. IMPRESSION: Soft tissue swelling over the lateral malleolus could be secondary to ligamentous injury. There is no evidence of fracture or dislocation. Electronically signed by: Shilpa Mackey III, MD (05/09/2020 8:36 PM) [facility] Course & Med Decision Making: Course & Med Decision Making Pertinent Imaging studies reviewed. (See chart for details) Patient presents with HPI and physical exam consistent for right ankle sprain. X-ray confirmed no fracture or dislocation. Symptomatic treatment provided with ice. Hermelindo wrap and crutches provided. Patient stable for discharge with outpatient follow-up with PCP/orthopedic. Orthopedic referral provided. Discussed findings and plan with patient, who acknowledges understanding and agreement. Dragon Disclaimer: Dragon Disclaimer: This electronic medical record was generated, in whole or in part, using a voice recognition dictation system. Splinting Splinting : Location: right ankle Pre-Made Type: HERMELINDO bandage Pre-Proc Neuro Vasc Exam: normal Post-Proc Neuro Vasc Exam: normal, unchanged from pre-exam Departure Departure Impression: Primary Impression: Right ankle sprain Qualified Codes: S93.401A - Sprain of unspecified ligament of right ankle, initial encounter Disposition: HOME, SELF-CARE Condition: STABLE Referrals: MUNDO LAMBERT MD (PCP) SHILPA MONTANA MD Patient Instructions: Ankle Sprain, [id number], Crutch Use, [id number] Justicifation of Admission Dx: Justifications for Admission: Justification of Admission Dx: N/A ANDRAE WHITLEY DO May 09, 2020 20:28
--- NOTE | 2020-05-09 20:39 | RAD ---
3 views right ankle AP lateral oblique views HISTORY: Pain The visualized osseous structures appear The tibiotalar relationship is normal. There is soft tissue swelling over the lateral malleolus. IMPRESSION: Soft tissue swelling over the lateral malleolus could be secondary to ligamentous injury. There is no evidence of fracture or dislocation. Electronically signed by: Kevin Mackey III, MD (05/09/2020 8:36 PM) [facility]
[2020-05-09 20:40] VITALS: BP 136/77
== END 2020-05-09 20:44 | disposition home or self-care (01) ==
LOC: ER 19:03
DX: S93.491A Sprain of other ligament of right ankle, initial encounter (principal); R60.0 Localized edema; E11.9 Type 2 diabetes mellitus without complications; K21.9 Gastro-esophageal reflux disease without esophagitis; E78.00 Pure hypercholesterolemia, unspecified; I10 Essential (primary) hypertension; F10.10 Alcohol abuse, uncomplicated; Z98.890 Other specified postprocedural states; W01.0XXA Fall on same level from slipping, tripping and stumbling without subsequent striking against object, initial encounter; Y93.89 Activity, other specified; Y92.89 Other specified places as the place of occurrence of the external cause; Y99.8 Other external cause status
CPT/HCPCS: 73610; 99283